=== PATIENT | male | born 1935 | race Asian ===

== ENCOUNTER 2017-06-11 11:09 | Emergency (ER) | payer OTHER ==
--- NOTE | 2017-06-11 13:03 | EDPHY ---
H & P Stated Complaint: BP up, positional vertigo since mar[place] when lying in bed - Personal History Current Tetanus Diphtheria and Acellular Pertussis (TDAP): Yes - Medical/Surgical History Hx Cardiac Disease: Yes Other PMH: CABG in 1992. HTN - Social History Smoking Status: Never smoked Constitutional: Initial Vital Signs Temperature (C) 36.5 C 06/11/17 11:10 Heart Rate 70 06/11/17 11:10 Respiratory Rate 18 06/11/17 11:10 Blood Pressure 176/83 H 06/11/17 11:10 O2 Sat (%) 97 06/11/17 11:10 O2 Delivery Mode Room Air Allergies/Adverse Reactions: No Known Allergies Allergy (Unverified 06/11/17 11:14) Home Medications: Medication Instructions Recorded Albuterol Sulfate [Proair Hfa] 8.5 gm IH 06/11/17 Amlodipine Besylate [Norvasc] 5 mg PO 06/11/17 Carvedilol [Coreg] 12.5 mg PO 06/11/17 Fluticasone/Salmeter 100/50Mcg 1 puffs IH BID 06/11/17 [Advair 100/50 (*)] Losartan Potassium [Cozaar 50 mg 50 mg PO 06/11/17 (*)] Nitroglycerin [Nitrostat 0.4 mg 0.4 mg SL 06/11/17 (*)] Rosuvastatin Calcium [Crestor 20mg 20 mg PO DAILY 06/11/17 (*)] Tiotropium Inhaler [Spiriva 1 inh IH 06/11/17 Inhaler] traZODone [traZODONE 50MG (*)] 50 mg PO 06/11/17 Medical Decision Making ED Course/Re-evaluation: 1258: Assessed patient in conjunction with REE Chapin. This is a 81 y/o male arriving with his family members complaining of intermittent dizziness and vertiginous symptoms for the last 4 days. 6 yrs ago workup for same was negative vertigo? intermittent since . no prior MRI. exacerbated by turning to the left, horizontal nystagmus. difficulty getting to standing and walking no nausea room does not seem to be spinning but he feels like he is spinning. no recent illness, trauma hypertension has lived in [place] 2015 Departure - Departure Referrals: Celena Best MD [Primary Care Provider] - As per Instructions
--- NOTE | 2017-06-11 13:07 | EDPHY ---
General - History Smoking Status: Never smoked Narrative: CHIEF COMPLAINT: Dizziness HISTORY OF PRESENT ILLNESS: Patient presents with spouse and physicians son at bedside. He complains of dizziness. This originally started night. It is described as a spinning sensation. Comes and goes. It did improve over night into Sunday morning. It worsened again Sunday evening. Seem to be worse when he laid in bed on his left side. It does also seem to be worse when he looks to his left when standing. He feels somewhat unsteady on his feet. No chest pain. No vomiting. He did have a mild generalized headache with this. He also have reportedly mild hypertension. Contacted his son Ana Laura. He suggested Mary Jane- [place] medication for possible sinus congestion. This did not help his symptoms. He initially tried to contact his primary care physician and an ENT physician but was unable to be seen. He presented to urgent care and they sent her to our facility for higher level of care. His spouse denies any facial droop or slurred speech. She denies any confusion or unilateral weakness. No previous stroke. Did have a previous similar incident approximately 6 years ago was constant. He was evaluated clinically by an ENT physician without imaging. No other associated complaints or modifying factors. REVIEW OF SYSTEMS: Ten systems reviewed and are negative unless otherwise noted in the HPI PCP: Dr. Celena Best SPECIALISTS: Dr. Hollis PAST MEDICAL HISTORY: Hypertension, dyslipidemia PAST SURGICAL HISTORY: No recent surgeries SOCIAL HISTORY: Nonsmoker. Resides in [place] for the past year FAMILY HISTORY: Noncontributory EXAMINATION General Appearance: Alert, no distress Head: normocephalic, atraumatic Eyes: Pupils equal and round, no conjunctival pallor or injection. Horizontal nystagmus. No vertical nystagmus. ENT, Mouth: Mucous membranes moist Neck: Normal inspection, supple, non-tender Respiratory: Lungs are clear to auscultation Cardiovascular: Regular rate and rhythm. No murmur. Symmetric radial pulses 2+ . Gastrointestinal: Abdomen is soft and nontender Back: non-tender, no bony abnormalities Neurological: GCS 15. Cranial nerves 2-12 grossly intact. A&O, nonfocal, strength is symmetric at 5/5 in the arms and legs. No pronator drift. Normal [id number]. Skin: Warm and dry, no rash Extremities: Nontender, no pedal edema Psychiatric: Mood and affect normal DIFFERENTIAL DIAGNOSES: Including but not limited to BPPV, vertebrobasilar syndrome, stroke, dehydration MDM: 1:10 p.m. Dizziness that seems to lateralize to the left consistent with BPPV. No evidence of stroke by examination or history. Patient was evaluated in conjunction with Dr. Espana. We agree that patient would benefit from an MRI of the brain to definitively rule out or and cerebellar abnormality. I have ordered meclizine p.o.. I have ordered laboratory studies an EKG. He is in no acute distress. 1:55 p.m. Laboratory studies unremarkable. MRI pending. 2:30 p.m. I went to re-evaluate the patient but he was just taking MRI. I have dated the spouse on the laboratory studies that are negative and the EKG that is normal. 3:20 p.m. MRI findings discussed between Dr. Espana and radiologist. No evidence of CVA. Etiology likely BPPV. Patient re-evaluated. He is feeling well. He sitting up on the bed with no nausea or vomiting. Meclizine helped a little bit he says. I gave him half dose level given the remainder of the dose. We discussed discharge home with follow-up with ENT and primary care physician. We discussed driving precautions. We discussed meclizine. We discussed ED precautions for worsening symptoms, chest pain, lightheadedness or syncope. All this information was relayed to his son with his permission. He will be discharged home stable condition. EKG interpretation: Dr. Espana SUPERVISION: Patient was evaluated and examined in conjunction with my secondary supervising physician as documented. We have both examined the patient. (Tony Chapin) Medical Decision Makin: Assessed patient in conjunction with REE Chapin. This is a 81 y/o male arriving with his family members complaining of intermittent dizziness and vertiginous symptoms for the last 4 days with associated elevated blood pressure. He was evaluated by ENT 6 years ago for similar symptoms and was treated for vertigo. He had no brain imaging at that time. His symptoms are exacerbated by movement, walking, and particularly turning to the left. He feels like he is spinning, but not the room. Symptoms are elicited by reading as well. He has some mild frontal headache and has tried treating symptoms with OTC decongestants without improvement. He was unable to get an appointment with either his PCP or ENT today and urgent care referred him to the ED. He was able to walk into the ED, but after moving him during exam he has difficulty transitioning to standing and feels too dizzy to walk. He is complaint with his hypertension medications. No associated nausea, vomiting, unilateral weakness or paresthesias. No recent illness or trauma. He has horizontal nystagmus particularly when turning to the left, but otherwise normal neuro exam. SHx: Patient has lived in [place] 2015. Son, Dr. Du from neurosurgery here, and at bedside. Plan for brain MRI to rule out central causes like cerebellar infarct, labs, and PO Meclizine. The 12 lead EKG was interpreted by myself. Sinus mechanism, no ischemic changes. See hard copy and/or "tracemaster" electronic copy for interpretation. (Milton Espana) - Diagnostics Imaging Results: Imaging Impressions Brain MRI 06/11/17 13:06 Impression: 1. Minimal cerebral atrophy. 2. No acute infarct, acute hemorrhage, hydrocephalus, mass effect, or herniation. 3. Multiple nonspecific hyperintense T2/FLAIR signal abnormalities in the white matter of bilateral cerebral hemispheres. Differential diagnosis includes moderate microvascular ischemic gliosis, versus less likely post-infectious/ post-inflammatory sequela. 4. 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 5. No brainstem or cerebellar infarcts. Findings and recommendations discussed with Emergency Department physician, Milton Espana MD at 1515 hour, 06/11/2017. Final report concurs with initial preliminary interpretation. Cosign: Dr. Eugenio Conti. - Objective Vital Signs: Initial Vital Signs Temperature (C) 97.7 F 06/11/17 11:10 Heart Rate 70 06/11/17 11:10 Respiratory Rate 18 06/11/17 11:10 Blood Pressure 176/83 H 06/11/17 11:10 O2 Sat (%) 97 06/11/17 11:10 O2 Delivery Mode Room Air Allergies/Adverse Reactions: No Known Allergies Allergy (Unverified 06/11/17 11:14) Home Medications: Medication Instructions Recorded Albuterol Sulfate [Proair Hfa] 8.5 gm IH 06/11/17 Amlodipine Besylate [Norvasc] 5 mg PO 06/11/17 Carvedilol [Coreg] 12.5 mg PO 06/11/17 Fluticasone/Salmeter 100/50Mcg 1 puffs IH BID 06/11/17 [Advair 100/50 (*)] Losartan Potassium [Cozaar 50 mg 50 mg PO 06/11/17 (*)] Meclizine HCl [Meclizine HCl 25 mg 25 mg PO BID #10 tab 06/11/17 (RX,OTC)] Nitroglycerin [Nitrostat 0.4 mg 0.4 mg SL 06/11/17 (*)] Rosuvastatin Calcium [Crestor 20mg 20 mg PO DAILY 06/11/17 (*)] Tiotropium Inhaler [Spiriva 1 inh IH 06/11/17 Inhaler] traZODone [traZODONE 50MG (*)] 50 mg PO 06/11/17 Laboratory Results: Laboratory Results 06/11/17 13:17 06/11/17 13:17 06/11/17 06/11/17 06/11/17 13:17 13:17 13:17 WBC 9.88 10^3/uL H 10^3/uL (3.80-9.50) RBC 6.27 10^6/uL 10^6/uL (4.40-6.38) Hgb 12.8 g/dL L g/dL (13.7-17.5) Hct 40.9 % % (40.0-51.0) MCV 65.2 fL L fL (81.5-99.8) MCH 20.4 pg L pg (27.9-34.1) MCHC 31.3 g/dL L g/dL (32.4-36.7) RDW 17.0 % H % (11.5-15.2) Plt Count 283 10^3/uL 10^3/uL (150-400) MPV 9.7 fL fL (8.7-11.7) Neut % (Auto) 63.2 % % (39.3-74.2) Lymph % (Auto) 23.3 % % (15.0-45.0) [place] % (Auto) 9.8 % % (4.5-13.0) Eos % (Auto) 1.7 % % (0.6-7.6) Baso % (Auto) 1.0 % % (0.3-1.7) Nucleat RBC Rel Count 0.2 % % (0.0-0.2) Absolute Neuts (auto) 6.24 10^3/uL 10^3/uL (1.70-6.50) Absolute Lymphs (auto) 2.30 10^3/uL 10^3/uL (1.00-3.00) Absolute Monos (auto) 0.97 10^3/uL H 10^3/uL (0.30-0.80) Absolute Eos (auto) 0.17 10^3/uL 10^3/uL (0.03-0.40) Absolute Basos (auto) 0.10 10^3/uL 10^3/uL (0.02-0.10) Absolute Nucleated RBC 0.02 10^3/uL H 10^3/uL (0-0.01) Immature Gran % 1.0 % % (0.0-1.1) Immature Gran # 0.10 10^3/uL 10^3/uL (0.00-0.10) Platelet Estimate ADEQUATE (ADEQ) Hypochromasia 3+ H Basophilic Stippling 1+ H Microcytic Cells 3+ H Tear Drop Cells 1+ H Elliptocytes 1+ H Smear Review By Pending PT 13.6 SEC SEC (12.0-15.0) INR 1.02 (0.83-1.16) APTT 33.3 SEC SEC (23.0-38.0) Sodium 135 mEq/L mEq/L (135-145) Potassium 4.4 mEq/L mEq/L (3.5-5.2) Chloride 100 mEq/L mEq/L (97-110) Carbon Dioxide 26 mEq/l mEq/l (22-31) Anion Gap 9 mEq/L mEq/L (8-16) BUN 16 mg/dL mg/dL (7-23) Creatinine 0.9 mg/dL mg/dL (0.7-1.3) Estimated GFR > 60 Glucose 124 mg/dL H mg/dL (70-100) Calcium 9.6 mg/dL mg/dL (8.5-10.4) NT-Pro-B Natriuret Pep 702 pg/mL H pg/mL (0-450) Lipase 107 IU/L IU/L (23-300) Medications Given: Discontinued Medications Meclizine HCl (Meclizine Hcl) 12.5 mg PO EDNOW ONE Stop: 06/11/17 13:09 Last Admin: 06/11/17 14:08 Dose: Not Given Meclizine HCl (Meclizine Hcl) 12.5 mg PO EDNOW ONE Stop: 06/11/17 14:08 Last Admin: 06/11/17 14:08 Dose: 12.5 mg Meclizine HCl (Meclizine Hcl) 12.5 mg PO EDNOW ONE Stop: 06/11/17 15:33 Last Admin: 06/11/17 15:40 Dose: 12.5 mg Departure - Departure Disposition: Home, Routine, Self-Care Clinical Impression: BPPV (benign paroxysmal positional vertigo) Qualifiers: Laterality: left Qualified Code(s): H81.12 - Benign paroxysmal vertigo, left ear Condition: Good Instructions: Vertigo (ED) Additional Instructions: 1. Meclizine 25 mg twice daily as needed 2. Continue previous medications 3. No driving until cleared by primary care physician or ENT physician 4. ED precautions for worsening symptoms, chest pain, loss of consciousness Referrals: Celena Best MD [Primary Care Provider] - As per Instructions Teresa Rios PA [Physician Racing Secretary And Handicapper] - As per Instructions Prescriptions: Meclizine HCl [Meclizine HCl 25 mg (RX,OTC)] 25 mg PO BID #10 tab
[2017-06-11] MEDS ORDERED: MECLIZINE HCL 12.5 MG TAB PO ONE (13:08)
--- NOTE | 2017-06-11 13:31 | CPEKG ---
Heart Rate: 73 RR Interval: 822 P-R Interval: 184 QRSD Interval: 142 QT Interval: 456 QTC Interval: 503 P [place]: 64 QRS Vale: -37 T Wave [place]: 49 EKG Severity - ABNORMAL ECG - EKG Impression: SINUS RHYTHM EKG Impression: PROBABLE LEFT ATRIAL ABNORMALITY EKG Impression: RBBB AND LAFB Electronically Signed By: Milton Espana 11-Jun-2017 19:44:02
[2017-06-11 13:33] LABS: PLATELET COUNT 283 10^3/uL (150-400)
[2017-06-11 13:42] LABS: INR 1.02 (0.83-1.16); PROTIME(PATIENT) 13.6 SEC (12.0-15.0)
[2017-06-11] MEDS ORDERED: MECLIZINE HCL 25 MG TAB ONE (14:01)
[2017-06-11] MEDS ORDERED: MECLIZINE HCL 25 MG TAB PO ONE ×2 (14:07→15:32)
[2017-06-11 16:00] VITALS: RESP 16
[2017-06-11 16:01] VITALS: BP 150/74; PULSE 69; TEMP 97.9; O2SAT 97
== END 2017-06-11 16:01 | disposition home or self-care (01) ==
DX: H81.12 Benign paroxysmal vertigo, left ear (principal); I10 Essential (primary) hypertension

== ENCOUNTER 2017-06-30 13:42 | Observation (INO) | payer OTHER ==
--- NOTE | 2017-06-30 13:55 | CPEKG ---
Heart Rate: 63 RR Interval: 952 P-R Interval: 180 QRSD Interval: 156 QT Interval: 484 QTC Interval: 496 P [place]: 70 QRS [place]: -23 T Wave [place]: 49 EKG Severity - ABNORMAL ECG - EKG Impression: SINUS RHYTHM EKG Impression: RBBB AND LAFB Electronically Signed By: Naheed Reyna 30-Jun-2017 21:24:16
--- NOTE | 2017-06-30 13:57 | EDPHY ---
H & P Time Seen by Provider: 06/30/17 13:52 HPI/ROS: CHIEF COMPLAINT: Syncope HISTORY OF PRESENT ILLNESS: The patient is a 81 y/o male with a history of hypertension and a CABG (1992) arriving via EMS after experiencing multiple syncopal episodes today. Last Sunday, 2 weeks ago, he felt dizzy and presented to the ED. He had normal labs and MRI and was referred to outpatient PT with ENT. His dizziness was improving , but he started modifying his cardiac medicines. 2 days ago he doubled his dose of a hypertension medication which cause his blood pressure to drop too much. Today he took this medications as prescribed. While sitting at lunch, he began to feel dizzy, lightheaded, and had a mild right arm twitch, which he was unaware of, so he requested to lie down. He then became unresponsive, but his eyes were still open; this lasted around 2-3 minutes. Following the syncope he was A&O x 3 per his son. He then moved to a chair in the living room where he had another syncopal episode of 1 minute. His family called 911 following the second syncopal episode. No cough, recent cold, fever, chest pain, abdominal pain, urinary complaints, extremity pain, headache. Followed by Dr. Hollis, open winder. Halter monitor worn last year was unremarkable. REVIEW OF SYSTEMS: Aside from elements discussed in the HPI, a comprehensive 10-point review of systems was reviewed and is negative. Past Medical/Surgical History: CABG (1992), hypertension Social History: Family at bedside including his son (Pepe Ana Laura, neurosurgeon), lives in [place] , retired Smoking Status: Never smoked Physical Exam: General Appearance: Alert, pleasant Eyes: Pupils equal and round, no conjunctival pallor or injection ENT, Mouth: Mucous membranes moist Neck: Normal inspection Respiratory: Lungs are clear to auscultation Cardiovascular: Regular rate and rhythm Gastrointestinal: Abdomen is soft and non-tender Neurological: Alert, oriented x3, cranial nerves II through XII intact, motor 5/ 5, sensory intact to light touch, normal gait Skin: Warm and dry, no rash Extremities: Nontender, no pedal edema Psychiatric: Mood and affect normal Constitutional: Initial Vital Signs Temperature (C) 36.9 C 06/30/17 13:45 Heart Rate 62 06/30/17 13:45 Respiratory Rate 20 06/30/17 13:45 Blood Pressure 97/58 L 06/30/17 13:45 O2 Sat (%) 96 06/30/17 13:45 O2 Delivery Mode Room Air Allergies/Adverse Reactions: No Known Allergies Allergy (Verified 06/30/17 13:54) Home Medications: Medication Instructions Recorded Carvedilol [Coreg] 12.5 mg PO BID 06/11/17 Nitroglycerin [Nitrostat 0.4 mg 0.4 mg SL PRN PRN 06/11/17 (*)] Rosuvastatin Calcium [Crestor 20mg 20 mg PO HS 06/11/17 (*)] traZODone [traZODONE 50MG (*)] 25 - 50 mg PO DAILY PRN 06/11/17 Acetaminophen [Tylenol 325mg (*)] 325 - 650 mg PO Q6 PRN 06/30/17 Albuterol Sulfate [Ventolin Hfa] 2 puffs IH Q4-6PRN PRN 06/30/17 Ascorbic Acid [Vitamin C 500 mg 500 mg PO BID 06/30/17 (*)] Aspirin [Aspirin 81mg (*)] 162 mg PO DAILY 06/30/17 Atovaquone/Proguanil HCl [Malarone 1 tab PO DAILY 06/30/17 250/100 mg Tab (*)] C/E/Zn/Cu/OM3/DHA/EPA/LUT/ZEAX 1 each PO DAILY 06/30/17 [Preservision Areds 2 Softgel] Fluticasone/Salmeter 250/50Mcg 1 puffs IH BID 06/30/17 [Advair 250/50 (*)] Herbals/Supplements -Info Only 1 ea PO DAILY 06/30/17 Levothyroxine [Synthroid 88 mcg 88 mcg PO DAILY06 06/30/17 (*)] Loratadine [Claritin 10 mg] 10 mg PO DAILY 06/30/17 Montelukast Sodium [Singulair 10 10 mg PO DAILY@1800 06/30/17 mg (*)] Multivitamins [Multivitamin (*)] 1 each PO DAILY 06/30/17 [place]-3 Fatty Acids [Fish Oil 1000 1,000 mg PO DAILY 06/30/17 mg (*)] Omeprazole [Prilosec 20 mg] 20 mg PO DAILY 02/10/18 Propylene Glycol [Systane Balance] 1 - 2 drops OP DAILY PRN 06/30/17 Losartan Potassium [Cozaar 50 mg 50 mg PO DAILY #30 tab 07/01/17 (*)] Medical Decision Making - Diagnostics EKG Interpretation: EKG interpreted by me reveals normal sinus rhythm with a rate of 63, normal axis , normal intervals, ST and T segments normal, RBBB and LAFB. Interpretation: abnormal EKG Imaging: I viewed and interpreted images myself ED Course/Re-evaluation: The patient is a 81 y/o male with a history of hypertension and a CABG (1992) arriving via EMS after multiple syncopal episodes today. His physical exam is normal. Due to prior syncopal and dizziness episodes, he will need to be admitted for observation. Patient and his family are comfortable with this plan. EKG and labs ordered. 500mL IV NS administered. 1348: EKG preformed and interpreted by myself 1407: Consulted with Dr. Jacome, open winder, regarding this patient. He agrees to consult on this patient during his admission. 1408: Consulted with hospitalist service, Dr. Yung agrees to admit this patient to the PCU. - Data Points Laboratory Results: Laboratory Results 06/30/17 13:50 06/30/17 13:50 Medications Given: Discontinued Medications Amlodipine Besylate (Norvasc) 5 mg PO DAILY [facility] Stop: 12/28/17 08:59 Last Admin: 07/01/17 09:46 Dose: Not Given Ascorbic Acid (Vitamin C) 500 mg PO BID DELFIN Stop: 12/27/17 20:59 Last Admin: 07/01/17 09:36 Dose: 500 mg Aspirin (Aspirin) 162 mg PO DAILY DELFIN Stop: 12/28/17 08:59 Last Admin: 07/01/17 09:36 Dose: 162 mg Atovaquone/Proguanil (Malarone 250-100 Mg Tablet) 1 each PO DAILY [facility] PRN Reason: Protocol Stop: 07/31/17 08:59 Last Admin: 07/01/17 11:02 Dose: Not Given Carvedilol (Coreg) 12.5 mg PO BID DELFIN Stop: 12/27/17 20:59 Last Admin: 07/01/17 09:37 Dose: 12.5 mg Cetirizine HCl (Zyrtec) 10 mg PO DAILY DELFIN Stop: 12/28/17 08:59 Last Admin: 07/01/17 09:37 Dose: 10 mg Enoxaparin Sodium (Lovenox) 40 mg SC DAILY DELFIN Stop: 12/28/17 08:59 Last Admin: 07/01/17 09:44 Dose: Not Given Sodium Chloride (Ns) 500 mls @ 1,000 mls/hr IV EDNOW ONE PRN Reason: Protocol Stop: 06/30/17 14:35 Last Admin: 06/30/17 14:34 Dose: 500 mls Levothyroxine Sodium (Synthroid) 88 mcg PO DAILY06 DELFIN Stop: 12/28/17 05:59 Last Admin: 07/01/17 06:04 Dose: 88 mcg Montelukast Sodium (Singulair) 10 mg PO DAILY@1800 DELFIN Stop: 12/27/17 17:59 Last Admin: 06/30/17 20:15 Dose: 10 mg Multivitamins (Tab-A-Segundo) 1 each PO DAILY DELFIN Stop: 12/28/17 08:59 Last Admin: 07/01/17 09:37 Dose: 1 each Multivitamins/Minerals (Preservision Areds2 Formula) 1 each PO DAILY DELFIN Stop: 12/28/17 08:59 Last Admin: 07/01/17 09:37 Dose: 1 each Lzwje-0-Ycra Ethyl Esters (Fish Oil) 1,000 mg PO DAILY DELFIN Stop: 12/28/17 08:59 Last Admin: 07/01/17 09:37 Dose: 1,000 mg Pantoprazole Sodium (Protonix) 40 mg PO DAILY DELFIN Stop: 12/28/17 08:59 Last Admin: 07/01/17 09:36 Dose: 40 mg Rosuvastatin Calcium (Crestor) 20 mg PO HS DELFIN Stop: 12/27/17 20:59 Last Admin: 06/30/17 20:15 Dose: 20 mg Fluticasone/Salmeterol (Advair) 1 puffs IH BID EDLFIN Stop: 12/27/17 20:59 Last Admin: 07/01/17 08:53 Dose: 1 puffs Senna/Docusate Sodium (Senokot-S) 1 - 2 tab PO BID DELFIN PRN Reason: Protocol Stop: 12/27/17 20:59 Last Admin: 07/01/17 09:38 Dose: 1 tab Trazodone HCl (Trazodone) 25 - 50 mg PO DAILY PRN PRN Reason: Anxiety Stop: 12/27/17 15:32 Last Admin: 06/30/17 20:26 Dose: 50 mg Departure - Departure Disposition: [facility] Inpatient Acute Clinical Impression: PVC (premature ventricular contraction) Syncope Qualifiers: Syncope type: unspecified Qualified Code(s): R55 - Syncope and collapse Condition: Fair Report Scribed for: Naheed Reyna Report Scribed by: Divina Pinon Date of Report: 06/30/17 Time of Report: 13:57 Physician Review and Approval Statement: 06/30/17 13:57 Portions of this note were transcribed by a director medical affairs. I personally performed a history, physical exam, medical decision making, and confirmed accuracy of information the transcribed note.
[2017-06-30 14:04] LABS: PLATELET COUNT 252 10^3/uL (150-400)
[2017-06-30] MEDS ORDERED: NS 500 ML IV ONE (14:06)
[2017-06-30] MEDS ORDERED: ACETAMINOPHEN 325 MG TAB PO PRN (14:12)
[2017-06-30] MEDS ORDERED: ONDANSETRON DISINTEGRATING 4 MG TAB PO PRN (14:12)
[2017-06-30] MEDS ORDERED: ONDANSETRON 4 MG/2 ML VIAL IVP PRN (14:12)
[2017-06-30] MEDS ORDERED: METOCLOPRAMIDE 5 MG TAB PO PRN (15:10)
[2017-06-30] MEDS ORDERED: BISACODYL 10 MG SUPP PR PRN (15:10)
[2017-06-30] MEDS ORDERED: MAGNESIUM HYDROXIDE 30 ML UDCUP PO PRN (15:10)
[2017-06-30] MEDS ORDERED: LACTULOSE 20 GM/30 ML UDCUP PO PRN (15:10)
[2017-06-30] MEDS ORDERED: POLYETHYLENE GLYCOL 3350 17 GM PKT PO PRN (15:10)
[2017-06-30] MEDS ORDERED: SIMETHICONE 80 MG TAB CHEW PO PRN (15:10)
[2017-06-30] MEDS ORDERED: NS 1,000 ML IV SCH (15:15)
--- NOTE | 2017-06-30 15:17 | PDGENHP ---
History and Physical - Chief Complaint Acute syncope - History of Present Illness Primary care provider: Dr. Celena Best Primary extruding machine operator: Dr. Trevon Hollis Primary ENT: Teresa vallecillo HPI: 81-year-old male presenting with acute syncope characterized as unresponsiveness, with onset of symptoms on the day of presentation after eating lunch, associated with lightheadedness while seated, twitching in the right upper extremity, duration approximately 2-3 minutes, and recurrence 3 times thereafter. Event was witnessed by the patient's son and , and the patient began feeling unwell with some lightheadedness immediately prior to his unresponsiveness. The patient's son responded to his side, kept him from falling, and supported his upper airway. The patient was reportedly unable to verbalize or respond approximately 2-3 minutes, and then he began verbally responding spontaneously without any intervention. He did not have any bowel or bladder incontinence. He did not experience any preceding chest pain palpitations shortness of breath nausea vomiting or diarrhea. He had been experiencing a sensation of abdominal bloating after eating his lunch, and this persisted beyond the episode outlined above. After the 1st episode, the patient subsequently was normal for a couple minutes, and then experienced recurrence. During the 2nd recurrence, EMS was called. When EMS arrived, his systolic blood pressure was reportedly in the 60s. During transport with EMS, he experienced 2 subsequent episodes, both of which resolved without further intervention. The patient reportedly received 250 cc of IV normal saline, and his systolic blood pressure increased into the low 100. Upon arrival to the the emergency department, his systolic blood pressures ranged from 130-150, and he has continued to receive IV fluid. The patient does not recall the events above clearly, but he reports that his only lingering symptom is some abdominal bloating. Prior to his onset of symptoms, the patient had otherwise been feeling well, with the exception being that he felt particularly cold on the morning of presentation, and put on an extra shirt. He was eating and drinking normally on the morning of presentation, and was taking his home medications as prescribed. Approximately 4 days prior, the patient had reduced is dosage of carvedilol in half, at the direction of his primary care office, after the patient had recently been up titrated but then experienced subsequent low blood pressures, in the low 100s. The patient had also recently been adjusted from losartan to losartan hydrochlorothiazide, and he did have outpatient labs following med adjustment. In addition, the patient had also recently been receiving Balaji maneuvers for what has been believed to be benign positional paroxysmal vertigo. History Information - Allergies/Home Medication List Allergies/Adverse Reactions: No Known Allergies Allergy (Verified 06/30/17 13:54) Home Medications: Albuterol Sulfate [Proair Hfa] 8.5 gm IH 06/11/17 [Last Taken Unknown] Amlodipine Besylate [Norvasc] 5 mg PO 06/11/17 [Last Taken Unknown] Carvedilol [Coreg] 12.5 mg PO 06/11/17 [Last Taken Unknown] Fluticasone/Salmeter 100/50Mcg [Advair 100/50 (*)] 1 puffs IH BID 06/11/17 [ Last Taken Unknown] Losartan Potassium [Cozaar 50 mg (*)] 50 mg PO 06/11/17 [Last Taken Unknown] Nitroglycerin [Nitrostat 0.4 mg (*)] 0.4 mg SL 06/11/17 [Last Taken Unknown] Rosuvastatin Calcium [Crestor 20mg (*)] 20 mg PO DAILY 06/11/17 [Last Taken Unknown] Tiotropium Inhaler [Spiriva Inhaler] 1 inh IH 06/11/17 [Last Taken Unknown] traZODone [traZODONE 50MG (*)] 50 mg PO 06/11/17 [Last Taken Unknown] I have personally reviewed and updated: family history, medical history, social history, surgical history - Past Medical History coronary artery disease (Status post CABG in 1991), hypertension, hyperlipidemia Additional medical history: Carotid stenosis status post CEA in 2012. Benign positional paroxysmal vertigo receiving Balaji maneuvers - Surgical History Additional surgical history: CABG. Right CEA. Hernia repair. Cataract surgery. Tonsillectomy - Family History Additional family history: No venous thromboembolism, no recent sick family contacts, no sudden cardiac - Social History Smoking Status: Never smoked Alcohol Use: Occasionally Drug Use: None Additional social history: Independent ADLs, lives with in [place], has moved to [place] 1.5 years ago Review of Systems Review of Systems: ROS: 10pt was reviewed & negative except for what was stated in HPI & below Constitutional: Reports: other (Feeling cold) Gastrointestinal: Reports: other (Feeling bloated) Neurological: Reports: other (Lightheadedness, unresponsiveness, right upper extremity tremulousness) Physical Exam Physical Exam: Temp Pulse Resp BP Pulse Ox 36.9 C 71 20 150/73 H 97 06/30/17 13:45 06/30/17 14:34 06/30/17 14:34 06/30/17 14:34 06/30/17 14:34 Constitutional: no apparent distress, appears nourished, not in pain Eyes: PERRL, anicteric sclera, EOMI Ears, Nose, Mouth, Throat: moist mucous membranes, hearing normal, ears appear normal, no oral mucosal ulcers Cardiovascular: No systolic murmur (Very distant heart sounds), No irregularly irregular (Occasional ectopic beat), No carotid bruit, No edema Respiratory: no respiratory distress, no rales or rhonchi, clear to auscultation Gastrointestinal: normoactive bowel sounds, soft, non-tender abdomen, no palpable masses, distension (Moderate), No guarding Skin: No abrasion, No rash Neurologic: AAOx3, sensation intact bilaterally, CN II-XII Intact, No weakness ( Motor 5/5 bilateral upper and lower extremities), No facial droop Psychiatric: interacting appropriately, not anxious, not encephalopathic, thought process linear Lab Data & Imaging Review 06/30/17 13:50 06/30/17 13:50 WBC 14.79 10^3/uL (3.80-9.50) H 06/30/17 13:50 RBC 5.49 10^6/uL (4.40-6.38) 06/30/17 13:50 Hgb 11.6 g/dL (13.7-17.5) L 06/30/17 13:50 Hct 35.1 % (40.0-51.0) L 06/30/17 13:50 MCV 63.9 fL (81.5-99.8) L 06/30/17 13:50 MCH 21.1 pg (27.9-34.1) L 06/30/17 13:50 MCHC 33.0 g/dL (32.4-36.7) 06/30/17 13:50 RDW 15.2 % (11.5-15.2) 06/30/17 13:50 Plt Count 252 10^3/uL (150-400) 06/30/17 13:50 MPV 10.1 fL (8.7-11.7) 06/30/17 13:50 Neut % (Auto) Not Reported 06/30/17 13:50 Lymph % (Auto) Not Reported 06/30/17 13:50 [place] % (Auto) Not Reported 06/30/17 13:50 Eos % (Auto) Not Reported 06/30/17 13:50 Baso % (Auto) Not Reported 06/30/17 13:50 Nucleat RBC Rel Count 0.5 % (0.0-0.2) H 06/30/17 13:50 Absolute Neuts (auto) Not Reported 06/30/17 13:50 Absolute Lymphs (auto) Not Reported 06/30/17 13:50 Absolute Monos (auto) Not Reported 06/30/17 13:50 Absolute Eos (auto) Not Reported 06/30/17 13:50 Absolute Basos (auto) Not Reported 06/30/17 13:50 Absolute Nucleated RBC 0.08 10^3/uL (0-0.01) H 06/30/17 13:50 Immature Gran % Not Reported 06/30/17 13:50 Immature Gran # Not Reported 06/30/17 13:50 D-Dimer 0.39 ug/mLFEU (0.00-0.50) 06/30/17 14:00 Sodium 128 mEq/L (135-145) L 06/30/17 13:50 Potassium 4.0 mEq/L (3.5-5.2) 06/30/17 13:50 Chloride 96 mEq/L (97-110) L 06/30/17 13:50 Carbon Dioxide 22 mEq/l (22-31) 06/30/17 13:50 Anion Gap 10 mEq/L (8-16) 06/30/17 13:50 BUN 25 mg/dL (7-23) H 06/30/17 13:50 Creatinine 1.1 mg/dL (0.7-1.3) 06/30/17 13:50 Estimated GFR > 60 06/30/17 13:50 Glucose 101 mg/dL (70-100) H 06/30/17 13:50 Calcium 8.1 mg/dL (8.5-10.4) L 06/30/17 13:50 Troponin I < 0.012 ng/mL (0.000-0.034) 06/30/17 13:50 TSH 2.290 uIU/mL (0.465-4.680) 06/30/17 14:00 Visualized and Interpreted EKG results: Yes EKG Interpretation: Positive for: other (Normal sinus rhythm, right bundle branch block, left anterior fascicular block, similar to EKG from 06/11/2017) Assessment & Plan Assessment: 81-year-old male presenting with acute syncope in the setting of hypotension, acute hyponatremia, acute leukocytosis Plan: 1. Syncope. Acute, new problem this provider, further workup indicated. Unclear etiology although this is most likely secondary to hypotension of unclear origin, possibly vasovagal in the setting of bloating postprandially verses overt hypovolemia in the setting of recent addition of diuretic to his blood pressure regimen -check orthostatics signs now, repeat in a.m. -given that it is unclear whether the patient has had a previous echocardiogram and he does have reduced heart sounds on physical exam, prudent to get repeat echocardiogram at this time -given the possibility of otherwise systemic illness causing this issue with leukocytosis, get respiratory viral panel -last 48hr monitor in 2017, PVCs on tele, monitor on telemetry, will consider implant linq recorder given the patient's upcoming travels to [facility] 2. Hyponatremia. Acute, secondary to renal hypoperfusion in the setting of hypotension, unclear whether the patient has overt hypovolemia in the setting of recent diuretic addition to his antihypertensive regimen -place on normal saline at 100 cc/hour, repeating labs at 8:00 p.m. and in a.m. -hold losartan and hydrochlorothiazide 3. Leukocytosis. Unclear whether this is secondary to hypotensive episode verses underlying viral infection, checking respiratory viral panel at this time , repeat WBC in a.m. 4. Possible benign positional paroxysmal vertigo. Patient records from 2015, ED report by Dr. 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 Coronary artery disease. Chronic, continue home aspirin, beta-bakari Diet. Regular, NPO in a.m. in case procedures indicated Prophylaxis. High risk patient, Lovenox 40 Code. Full, son is POTejinder Disposition. Anticipated discharge 07/01, pending further workup as outlined above. If patient requires greater than 48 hr inpatient hospitalization for reasonable medical necessity, his status will be upgraded to inpatient tomorrow. I have discussed the issues outlined above with Dr. Josh Jacome, we both agree the patient warrants further evaluation on the PCU, and Dr. Trevon Hollis will consult on the patient tomorrow a.m..
[2017-06-30] MEDS ORDERED: traZODone 50 MG TAB PO PRN (15:33)
[2017-06-30] MEDS ORDERED: PROPYLENE GLYCOL OP PRN (15:33)
[2017-06-30] MEDS ORDERED: ALBUTEROL INH PREPACK MDI TAKEHOME PRN (15:33)
[2017-06-30] MEDS ORDERED: ALBUTEROL 60 PUFFS/8 GM MDI IH PRN (15:50)
[2017-06-30] MEDS ORDERED: MONTELUKAST SODIUM 10 MG TAB PO SCH (18:00)
[2017-06-30] MEDS: SENNOSIDES/DOCUSATE SODIUM TAB PO SCH (20:15)
[2017-06-30] MEDS: ASCORBIC ACID 500 MG TAB PO SCH (20:15)
[2017-06-30] MEDS: CARVEDILOL 25 MG TAB PO SCH (20:15)
[2017-06-30] MEDS: FLUTICASONE/SALMETER 250/50MCG DISKUS IH SCH (20:19)
[2017-06-30] MEDS ORDERED: FLUTICASONE/SALMETER 250/50MCG DISKUS IH SCH (21:00)
[2017-06-30] MEDS ORDERED: NON-FORMULARY NEW DRUG (Carvedilol [Coreg] 12.5 MG) PO SCH (21:00)
[2017-06-30] MEDS ORDERED: ROSUVASTATIN CALCIUM 20 MG TAB PO SCH (21:00)
[2017-07-01 04:40] LABS: PLATELET COUNT 190 10^3/uL (150-400)
[2017-07-01] MEDS ORDERED: LEVOTHYROXINE 88 MCG TAB PO SCH (06:00)
--- NOTE | 2017-07-01 08:52 | SOAPPROG ---
SOAP Progress Note Assessment/Plan: Assessment: Syncope: Based on the history obtained the most likely etiology is hemodynamically mediated syncope. I think arrhythmia is less likely given the fact that EMS arrived on the scene and obtained a blood pressure that they did. Additionally, he has been monitored several times in the past with no complex arrhythmias identified. The hypotension may be vasovagally mediated and is certainly contributed to by his multiple antihypertensive medications. Furthermore, he appeared to be slightly dehydrated on arrival based on review of his lab data. There is no indication of an acute coronary syndrome at think underlying ischemia is not likely to be contributing. He appears to have done well since he has been hospitalized. Blood pressures have stabilized. He states he feels back to normal. Plan: 1. Presently, I think that he can be discharged from the hospital. 2. For the time being the hydrochlorothiazide portion of his losartan/HCTZ can be held and he can continue on the lower dose (12.5 mg twice daily) of his Coreg. 3. As an outpatient I will expedite an echocardiogram and a 1 week [employer] monitor. 4. I will have him follow up with me in the office next week. 5. Apparently, he and his have plans to travel to [facility]. At the present time, I think that we should complete his workup prior to any extensive travel. 07/01/17 08:57 Subjective: He is well known to me from my outpatient clinic. His cardiovascular history is significant for known CAD with previous 4 vessel bypass surgery in 1993 and subsequent PCI in 2003, peripheral vascular disease characterized by previous carotid endarterectomy, hypertension and hyperlipidemia. At baseline, he has an abnormal ECG with a right bundle branch block/left anterior fascicular block. Previous Holter monitoring has not indicated any significant Mathew arrhythmias. He does have occasional PVCs. Here recently, we have been dealing with poor blood pressure control. Several weeks ago his Coreg was up titrated to 25 mg twice daily. Apparently, this resulted in low blood pressure readings in the low 100s and as a result he cut his Coreg back to 12-,1/2 mg daily. He is admitted with syncope. He woke yesterday feeling "chilled." As a result he put on several layers of additional clothing. Otherwise, he was not feeling ill. He was having lunch with his and his son yesterday. Apparently, this was an uneventful lunch. Immediately afterwards he felt a little bit warm and flushed. He asked for a glass of water. Apparently he subsequently lost consciousness while sitting in an upright position. He slumped over. His son, who is a neurosurgeon at this institution, assisted in keeping his airway open. It was noted that he was in and out of consciousness for about 2-3 minutes. He had a slight convulsive activity with his right extremity. He had no generalized seizures. There was no loss of bowel or bladder control. During periods of time where he was alert he was oriented. He was not diaphoretic and was not complaining of chest discomfort. EMS was activated. Apparently, when they arrived his blood pressure was noted to be in the 60s. An IV was placed and he was transported to [facility]. On arrival here his blood pressure was in the 90s and he was in sinus rhythm. He has not had any further events like this since he has arrived. His Cozaar/hydrochlorothiazide has been held. He has not been sick in any other way that he knows of. Specifically he denies diarrhea, nausea and vomiting. He has not experienced any chest discomfort or breathlessness. He has not had any palpitations. He does occasionally get lightheaded if he stands up quickly however has not had any other episodes of syncope. Previous cardiovascular testing includes: He had a Holter monitor in September of 2016. That demonstrated normal sinus rhythm with no pauses. There were frequent PVCs with no complex ventricular arrhythmias. Carotid ultrasound February 2016 demonstrated carotid plaque with no acute destructive internal carotid lesions. Holter monitor from January 2016 demonstrated sinus rhythm with PVCs and couplets. Echocardiogram from March 2015 demonstrated a normal ejection fraction with hypokinesis of the inferior wall. He had moderate aortic regurgitation with moderate left atrial enlargement. Myocardial Perfusion Imaging from June 2014 demonstrated evidence of a previous inferior infarct. Objective: Vital Signs Temp Pulse Resp BP Pulse Ox 36.8 C 84 16 120/49 L 93 07/01/17 07:22 07/01/17 07:22 07/01/17 07:22 07/01/17 07:22 07/01/17 07:22 Microbiology 06/30/17 14:16 Respiratory Panel (PCR) - Final Nasal, Sinus - Swab No Organism Detected Laboratory Results 07/01/17 04:04 07/01/17 04:04 06/30/17 07/01/17 07/02/17 05:59 05:59 05:59 Intake Total 1050 Output Total 2450 Balance -1400 Physical Exam - Physical Exam General Appearance: WD/WN, no apparent distress Neck: non-tender, full range of motion Respiratory: lungs clear, normal breath sounds, No respiratory distress, No accessory muscle use, No decreased breath sounds Cardiac/Chest: normal peripheral pulses, regular rate, rhythm, systolic murmur ( 1/6 systolic ejection murmur left sternal border), No edema, No gallop, No JVD Peripheral Pulses: 2+: carotid (R), carotid (L) Abdomen: non-tender, soft Male Genitalia: deferred Rectal: deferred ICD10 Worksheet Patient Problems: Problems Problem Status Onset Syncope Acute PVC (premature ventricular contraction) Acute
[2017-07-01] MEDS: FLUTICASONE/SALMETER 250/50MCG DISKUS IH SCH (08:53)
[2017-07-01] MEDS ORDERED: Herbals/Supplements -Info Only PO SCH (09:00)
[2017-07-01] MEDS ORDERED: MALARONE 250/100 MG TAB PO SCH (09:00)
[2017-07-01] MEDS ORDERED: OMEGA-3 FATTY ACIDS 1,000 MG CAP PO SCH (09:00)
[2017-07-01] MEDS ORDERED: NON-FORMULARY NEW DRUG (Omeprazole [Prilosec 20 Mg] 20 MG) PO SCH (09:00)
[2017-07-01] MEDS ORDERED: amLODIPine BESYLATE 5 MG TAB PO SCH (09:00)
[2017-07-01] MEDS ORDERED: PRESERVISION AREDS2 FORMULA EYE VIT 1 EACH PO SCH (09:00)
[2017-07-01] MEDS ORDERED: CETIRIZINE 10 MG TAB PO SCH (09:00)
[2017-07-01] MEDS ORDERED: ASPIRIN 81 MG CHEWABLE TAB PO SCH (09:00)
[2017-07-01] MEDS ORDERED: NON-FORMULARY NEW DRUG (Loratadine [Claritin 10 Mg] 10 MG) PO SCH (09:00)
[2017-07-01] MEDS ORDERED: ENOXAPARIN 40 MG/0.4 ML SYR SC SCH (09:00)
[2017-07-01] MEDS ORDERED: PANTOPRAZOLE SODIUM 40 MG TAB PO SCH (09:00)
[2017-07-01] MEDS ORDERED: MULTIVITAMINS 1 EACH TAB PO SCH (09:00)
[2017-07-01] MEDS: ASCORBIC ACID 500 MG TAB PO SCH (09:36)
[2017-07-01] MEDS: CARVEDILOL 25 MG TAB PO SCH (09:37)
[2017-07-01] MEDS: SENNOSIDES/DOCUSATE SODIUM TAB PO SCH (09:38)
--- NOTE | 2017-07-01 12:33 | PDDCSUM ---
Discharge Summary Discharge Summary: Mr. Du was admitted after a syncopal episode which appears due to hypotension/hemodynamics. He was given IVF and BP meds were decreased. BP overnight was stable. He was seen this morning by Dr. Jose Hollis who has cleared him for d/c. BP is stable in the 120's. He did received coreg but not other BP meds. Going forward, Dr. Hollis recommends, continuing Losartan 50 and coreg 12.5 mg bid. Stop HCTZ. He is also on Amlodipine and will stop until he is seen by Dr. Hollis on Sunday. DDX: #Syncope #Hyponatremia, improving, likely due to hypotension/hypoperfusion/hypovolemia. Would check on f/u. Hold HCTZ. Losartan to restart tomorrow #Leukocytosis, no active infection #CAD Exam: VSS NAD AAOX3 RRR CTA B S/NT/ND NO LE EDEMA MEDS: SEE MED REC. SEE ABOVE F/U: per above total time spent on d/c is 35 mins
[2017-07-01 13:23] VITALS: BP 113/49; PULSE 75; RESP 12; TEMP 97.6; O2SAT 95
[2017-07-04] MEDS ORDERED: MALARONE 250/100 MG TAB PO SCH (09:00)
== END 2017-07-01 13:30 | disposition home or self-care (01) ==
LOC: EDUNIT# → F2W 15:12
PROVIDERS: ADMIT Internal Medicine; ATTEND Internal Medicine
DX: R55 Syncope and collapse (principal); E87.1 Hypo-osmolality and hyponatremia; D72.829 Elevated white blood cell count, unspecified; I25.10 Atherosclerotic heart disease of native coronary artery without angina pectoris; E86.9 Volume depletion, unspecified; Z98.890 Other specified postprocedural states
CPT/HCPCS: 71046; 93005; 93880; 97161; 97165; G0378; G8978; G8979; G8980; G8987; G8988; G8989; J1650

== ENCOUNTER → 2017-08-28 | Outpatient (CLI) | payer OTHER | LOC: BHFA 08:30 | PROVIDERS: ATTEND Internal Medicine Cardiovascular Disease | DX: R55 Syncope and collapse (principal) | CPT/HCPCS: 78452; 93017; A9500; J2785 ==

== ENCOUNTER 2017-10-22 05:42 | Day surgery (SDC) | payer OTHER ==
[2017-10-22] MEDS ORDERED: ceFAZolin 2 GM/DEXTROSE 100 ML IV ONE (06:00)
[2017-10-22] MEDS ORDERED: GABAPENTIN 300 MG CAP PO ONE (06:03)
[2017-10-22] MEDS ORDERED: ACETAMINOPHEN 500 MG TAB PO ONE (06:03)
[2017-10-22] MEDS ORDERED: LR 1,000 ML IV ONE (06:04)
[2017-10-22] MEDS ORDERED: LIDOCAINE 1% 2 ML INJ ID PRN (06:04)
[2017-10-22] MEDS ORDERED: DEPO METHYLPREDNISOLONE 40 MG/ML SDV ONE (06:37)
[2017-10-22] MEDS ORDERED: CHLORHEXIDINE GLUC HIBICLENS 118 ML BTL TP ONE (06:37)
[2017-10-22] MEDS ORDERED: BUPIVACAINE 0.25% 30 ML SDV ONE (06:37)
[2017-10-22] MEDS ORDERED: EPINEPHrine 1 MG/ML INJ ONE (06:37)
[2017-10-22] MEDS ORDERED: THROMBIN (BOVINE) 5,000 UNIT VIAL TP ONE (06:37)
[2017-10-22] MEDS ORDERED: BACITRACIN 50,000 UNITS/10 ML SYR IRR ONE (06:38)
--- NOTE | 2017-10-22 06:53 | PDHPUP ---
History & Physical Update H&P update statement: This history and physical update is based on an assessment of the patient which was completed after admission or registration (within 24 hours), but prior to the surgery/procedure. H&P update: H&P reviewed & patient examined, no change in patient's condition since H&P completed
--- NOTE | 2017-10-22 07:16 | PDANEPAE ---
ANE Past Medical History - Cardiovascular History Hx Hypertension: Yes Hx Arrhythmias: Yes Hx Chest Pain: No Hx Coronary Artery / Peripheral Vascular Disease: Yes Hx CHF / Valvular Disease: No Hx Palpitations: No Cardiovascular History Comment: POST ANGIOGRAM 1994 HEART STOPPED. HX PVC'S - Pulmonary History Hx COPD: No Hx Asthma/Reactive Airway Disease: Yes Hx Recent Upper Respiratory Infection: No Hx Oxygen in Use at Home: No Hx Sleep Apnea: No Sleep Apnea Screening Result - Last Documented: Positive Pulmonary History Comment: SOB SINCE MOVING FROM [place] 2015. SEASONAL ALLERGIES - Neurologic History Hx Cerebrovascular Accident: No Hx Seizures: No Hx Dementia: No - Endocrine History Hx Diabetes: No Endocrine History Comment: HYPOTHYROID - Renal History Hx Renal Disorders: No - Liver History Hx Hepatic Disorders: No - Neurological & Psychiatric Hx Hx Neurological and Psychiatric Disorders: No - Cancer History Hx Cancer: No - Congenital Disorder History Hx Congenital Disorders: No - GI History Hx Gastrointestinal Disorders: Yes Gastrointestinal History Comment: GERD. HX OF POLYPS - Other Health History Other Health History: SPINAL STENOSIS. BENIGN PAROXYSMAL POSITIONAL VERTIGO 2017 - Chronic Pain History Chronic Pain: Yes (LOWER BACK INTO RT LEG) - Surgical History Prior Surgeries: FARZANA CATARACT. GABG X5 1991. TONSILLECTOMY. LT ING HERNIA. RT CAROTID ENDARECTOMY 2011. DAKOTA PAST 5 YRS ANE Review of Systems Review of Systems: - Exercise capacity METS (RN): 4 METS ANE Patient History - Allergies Allergies/Adverse Reactions: No Known Allergies Allergy (Verified 06/30/17 13:54) - Home Medications Home Medications: Nitroglycerin [Nitrostat 0.4 mg (*)] 0.4 mg SL PRN PRN 06/11/17 [Last Taken 1 Year Ago ~10/22/16] Rosuvastatin Calcium [Crestor 20mg (*)] 20 mg PO DAILY 06/11/17 [Last Taken 08/05 21:00] traZODone [traZODONE 50MG (*)] 25 - 50 mg PO HS 06/11/17 [Last Taken 10/21/17 21 :00] Acetaminophen [Tylenol 325mg (*)] 325 - 650 mg PO Q6 PRN 06/30/17 [Last Taken 2 Weeks Ago ~10/08/17] Albuterol Sulfate [Ventolin Hfa] 2 puffs IH Q4-6PRN PRN 06/30/17 [Last Taken ] Ascorbic Acid [Vitamin C 500 mg (*)] 500 mg PO BID 06/30/17 [Last Taken 10/19/17 ] Aspirin [Aspirin 81mg (*)] 162 mg PO DAILY 06/30/17 [Last Taken 10/15/17] C/E/Zn/Cu/OM3/DHA/EPA/LUT/ZEAX [Preservision Areds 2 Softgel] 1 each PO DAILY [Last Taken 10/19/17] Fluticasone/Salmeter 250/50Mcg [Advair 250/50 (*)] 1 puffs IH BID 06/30/17 [ Last Taken 10/22/17 05:00] Herbals/Supplements -Info Only 1 ea PO DAILY 06/30/17 [Last Taken 10/19/17] Levothyroxine [Synthroid 88 mcg (*)] 88 mcg PO DAILY06 06/30/17 [Last Taken 09/05 05:00] Loratadine [Claritin 10 mg] 10 mg PO DAILY 06/30/17 [Last Taken 10/22/17 05:00] Montelukast Sodium [Singulair 10 mg (*)] 10 mg PO DAILY@1800 06/30/17 [Last Taken 10/21/17 21:00] Multivitamins [Multivitamin (*)] 1 each PO DAILY 06/30/17 [Last Taken 10/19/17] [place]-3 Fatty Acids [Fish Oil 1000 mg (*)] 1,000 mg PO DAILY 06/30/17 [Last Taken 10/19/17] Omeprazole [Prilosec 20 mg] 20 mg PO DAILY 06/30/17 [Last Taken 10/22/17 05:00] Propylene Glycol [Systane Balance] 1 - 2 drops OP DAILY PRN 06/30/17 [Last Taken 10/22/17] Bystolic DAILY 10/09/17 [Last Taken 10/22/17 05:00] Amlodipine Bes/Olmesartan Med HS 10/19/17 [Last Taken 10/21/17 21:00] Advair Hfa 115-21 Mcg Inhaler 10/22/17 [Last Taken Unknown] Gabapentin 10/22/17 [Last Taken 10/21/17 21:00] - NPO status NPO Since - Liquids (Date): 10/22/17 NPO Since - Liquids (Time): 05:00 NPO Since - Solids (Date): 10/21/17 NPO Since - Solids (Time): 19:00 - Smoking Hx Smoking Status: Never smoked ANE Labs/Vital Signs - Vital Signs Blood Pressure: 139/60 Heart Rate: 64 Respiratory Rate: 16 O2 Sat (%): 97 Height: 172.72 cm Weight: 68.039 kg ANE Physical Exam - Airway Neck exam: FROM Mallampati Score: Class 2 Mouth exam: normal dental/mouth exam - Pulmonary Pulmonary: no respiratory distress - Cardiovascular Cardiovascular: regular rate and rhythym - ASA Status ASA Status: III ANE Anesthesia Plan Anesthesia Plan: general endotracheal anesthesia
[2017-10-22] MEDS ORDERED: PROPOFOL/EMULSION 500 MG/50 ML BOTTLE IV ONE (07:20)
[2017-10-22] MEDS ORDERED: DEXAMETHASONE 4 MG/ML VIAL ONE ×2 (07:20)
[2017-10-22] MEDS ORDERED: ROCURONIUM 50 MG/5 ML VIAL ONE (07:21)
[2017-10-22] MEDS ORDERED: PHENYLEPHRINE 10 MG/ML SDV ONE (07:21)
[2017-10-22] MEDS ORDERED: LIDOCAINE 2% 100 MG/5 ML SYR ONE (07:21)
[2017-10-22] MEDS ORDERED: METOCLOPRAMIDE 10 MG/2 ML VIAL ONE (07:21)
[2017-10-22] MEDS ORDERED: SUGAMMADEX SODIUM 200 MG/2 ML VIAL IVP ONE (08:16)
--- NOTE | 2017-10-22 09:14 | POSTOPPROG ---
Post Op Note Date of Operation: 10/22/17 Surgeon: Gladis Moreira Tearoom Host/Hostess: Ynes Sanchez NP Anesthesiologist: Rachel Anesthesia: GET(General Endotracheal) Procedure: Right L4-5 LRD Inf/Abcess present in the surg proc area at time of surgery?: No Depth: Deep Incisional (Fascial) EBL: 50-100 Total fluids administered: see anesthesia Complications: none Date of Surgery: 10/22/17 Post Op Day: 0 Assessment/Plan: Assessment: 82yr old s/p right L4-5 LRD and cyst resection Plan: -Right leg pain seems improved, patient with left lower back pain that started last night -Dc home when criteria met Please call neurosurgery with questions/concerns Subjective: Waking up in PACU Objective: Waking up in PACU No facial droop 5/5 BLE, BUE Sensation intact to light touch BLE Dressing CDI Appropriate Neuro Check Frequency Ordered: Yes
[2017-10-22] MEDS ORDERED: HYDROCODONE/APAP 5/325 TAB PO PRN (09:19)
[2017-10-22] MEDS ORDERED: NALOXONE HCL 0.4 MG/ML INJ IVP PRN (09:20)
[2017-10-22] MEDS ORDERED: fentaNYL 100 MCG/2 ML INJ IVP PRN (09:20)
[2017-10-22] MEDS ORDERED: ALBUTEROL 3 ML DEYVIAL IH PRN (09:20)
[2017-10-22] MEDS ORDERED: oxyCODONE IR 5 MG TAB PO PRN (09:20)
[2017-10-22] MEDS ORDERED: ONDANSETRON 4 MG/2 ML VIAL IVP PRN (09:20)
--- NOTE | 2017-10-22 09:22 | POSTANESTH ---
Post Anesthetic Evaluation Cardiovascular Status: Similar to Pre-Op Cond Respiratory Status: Similar to Pre-op Cond. Level of Consciousness/Mental Status: Alert and Oriented Pain Control: Adequate, Prn Tx Ordered Nausea/Vomiting Control: Adequate, Prn Tx Ordered Complications Possibly Related to Anesthesia: None Noted
[2017-10-22 10:17] VITALS: BP 115/57
--- NOTE | 2017-10-22 10:26 | GOP ---
[f rep st] OPERATIVE REPORT DATE OF OPERATION: 10/22/2017 SURGEON: Alicia Moreira MD TRACTOR OPERATOR: Ynes Sanchez, nurse practitioner. 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 PROCEDURE PERFORMED: Right L4-5 hemilaminotomy, medial facetectomy of the right lateral recess decom pression, L4-5 ([id number]), microscope. FINDINGS: ESTIMATED BLOOD LOSS: 10 cc. INDICATIONS: The patient is an 82-year-old with terrible right leg pain and mild spondylolisthesis a t L4-5. He had severe bilateral facet arthropathy and bilateral recess stenosis at L4-5, but he appe ared to have a synovial cyst and very severe right lateral recess stenosis at L4-5, and I felt this w as the problem. I suggested a right-sided lateral recess decompression alone even though he did have stenosis on the left side. He also had a component of axial low back pain. I thought it was most r easonable given his advanced age to simply tried to decompress the right-sided nerve root. The risk of nerve injury, spinal fluid leak, and continued symptoms was discussed. I did not intend to do a m icrodiskectomy. He knew there was a chance of continued symptoms and possible need for fusion surger y. He wanted to proceed despite the risks. DESCRIPTION OF PROCEDURE: The patient was taken to the operating room, placed in supine position. G eneral anesthesia was begun. A localizing x-ray was taken. He was sterilely prepped and draped in u sual fashion. We anesthetized the paraspinal tissues with 0.25% Marcaine with epinephrine. We made a midline 15 mm incision above the L4-5 interspace. The subcutaneous tissue was dissected us ing Bovie cautery down to the fascia and a subperiosteal dissection was made down the lamina of L4-5 on the right-hand side. Self-retaining tractor was placed. We shot another localizing x-ray. Under the microscope, we drilled a right L4-5 hemilaminotomy and opened the underlying ligamentum flavum a nd decompressed the right lateral recess. There was a fluid-filled synovial cyst coming off the right L4-5 facet joint. It was not adherent to the dura. It was significantly bulging and indenting the right lateral recess, as well as the entry zone for the L5 nerve root sheath into the thecal sac above the 4, 5 disk. This was completely deco mpressed from the top third of the L5 pedicle all the way to the bottom portion of the L4 pedicle, an d we used the foraminotomy Kerrisons to open the neural foramen as well. We did not remove too much of the facet joint. The IAP of L4 was intact at the conclusion of the case. An excellent right late ral recess decompression had been obtained. There was an hourglass appearance to the dura above the L4-5 interspace. We placed some Depo-Medrol above the L5 root and then closed in multiple layers usi ng Vicryl sutures. Blood loss was minimal. COMPLICATIONS: None. /[id number]/MODL
[2017-10-22] MEDS ORDERED: METHOCARBAMOL 750 MG TAB PO SCH (16:00)
== END 2017-10-22 11:51 | disposition home or self-care (01) ==
LOC: FSGY 05:42
PROVIDERS: ATTEND Neurological Surgery
PROC: 00NY0ZZ Release Lumbar Spinal Cord, Open Approach (ICD-10-PCS; principal; 2017-10-22 07:30)
DX: M43.16 Spondylolisthesis, lumbar region (principal); M48.061 Spinal stenosis, lumbar region without neurogenic claudication; M54.17 Radiculopathy, lumbosacral region; I10 Essential (primary) hypertension
CPT/HCPCS: J0171; J0690; J1030; J1100; J2001; J2370; J2704; J2765

== ENCOUNTER → 2017-11-08 | Outpatient (CLI) | payer OTHER | LOC: FIMAGING 13:39 | PROVIDERS: ATTEND Nurse Practitioner | DX: M51.26 Other intervertebral disc displacement, lumbar region (principal); Z98.890 Other specified postprocedural states ==

== ENCOUNTER → 2018-05-03 | Outpatient (CLI) | payer OTHER | LOC: FIMAGING 09:54 | PROVIDERS: ATTEND Internal Medicine Cardiovascular Disease | DX: I25.10 Atherosclerotic heart disease of native coronary artery without angina pectoris (principal); Z98.890 Other specified postprocedural states ==

== ENCOUNTER → 2018-05-07 | Outpatient (CLI) | payer OTHER ==
[~2018-05-07] MED LIST: IOPAMIDOL (ISOVUE 370) 100 ML BTL IV ONE
== END ==
LOC: FIMAGING 09:09
PROVIDERS: ATTEND Internal Medicine Cardiovascular Disease
DX: I65.23 Occlusion and stenosis of bilateral carotid arteries (principal)
CPT/HCPCS: 70498; Q9967; 82565-PO

== ENCOUNTER 2018-05-16 22:50 | Inpatient (IN) | payer OTHER ==
[2018-05-16 23:06] LABS: PLATELET COUNT 297 10^3/uL (150-400)
--- NOTE | 2018-05-16 23:16 | EDPHY ---
H & P Stated Complaint: syncope Time Seen by Provider: 05/16/18 23:00 HPI/ROS: Chief Complaint: Syncope HPI: 82-year-old male with a history of coronary artery disease and carotid disease was meditating tonight when he had a witnessed syncopal episode. Two was in a seated position when he lost consciousness. His found hit the floor. He had a similar episode about 9 months ago and was seen by his preform machine operator. He might with Dr. Garvin earlier today is scheduled for a carotid endarterectomy next week. Did not have any chest pain or palpitations. No shortness of breath. No recent illness. He did receive a varicella vaccination today. ROS: 10 systems were reviewed and were negative except those elements noted in the HPI. PMH: Coronary artery disease status post coronary artery bypass graft, carotid stenosis Social History: No smoking, no alcohol, no recreational drug use Family History: non-contributory Physical Exam: Gen: Awake, Alert, No Distress HEENT: Nose: no rhinorrhea Eyes: PERRLA, EOMI Mouth: Moist mucosa Neck: Supple, no JVD Chest: nontender, lungs clear to auscultation Heart: S1, S2 normal, no murmur Abd: Soft, non-tender, no guarding Back: no CVA tenderness, no midline tenderness Ext: no edema, non-tender Skin: no rash Neuro: CN II-XII intact, Sensation grossly intact, Strength 5/5 in bilateral upper and lower extremities - Personal History Current Tetanus/Diphtheria Vaccine: Yes Current Tetanus Diphtheria and Acellular Pertussis (TDAP): Yes - Medical/Surgical History Hx Asthma: Yes Hx Chronic Respiratory Disease: No Hx Diabetes: No Hx Cardiac Disease: Yes Hx Renal Disease: No Hx Cirrhosis: No Hx Alcoholism: No Hx HIV/AIDS: No Hx Splenectomy or Spleen Trauma: No Other PMH: CABGx4-5 in 1992. Asystole during angiogram 1995. HTN. High cholesterol. Asthma, arthritis, coronary artery disease. R CEA p unusual visual sxs. Syncope. L inguinal hernia repair. Bilateral cateract surgery, hernia, tonsillectomy, spine L5. Lower spine pain, non-surgical - Social History Smoking Status: Never smoked Constitutional: Initial Vital Signs Temperature (C) 36.5 C 05/16/18 22:57 Heart Rate 66 05/16/18 22:57 Respiratory Rate 16 05/16/18 22:57 Blood Pressure 141/59 H 05/16/18 22:57 O2 Sat (%) 95 05/16/18 22:57 O2 Delivery Mode Room Air Allergies/Adverse Reactions: No Known Allergies Allergy (Verified 05/16/18 23:01) Home Medications: Medication Instructions Recorded Nitroglycerin [Nitrostat 0.4 mg 0.4 mg SL PRN PRN 06/11/17 (*)] Rosuvastatin Calcium [Crestor 20mg 20 mg PO DAILY 06/11/17 (*)] traZODone [traZODONE 50MG (*)] 25 - 50 mg PO HS 06/11/17 Acetaminophen [Tylenol 325mg (*)] 325 - 650 mg PO Q6 PRN 06/30/17 Albuterol Sulfate [Ventolin Hfa] 2 puffs IH Q4-6PRN PRN 06/30/17 Ascorbic Acid [Vitamin C 500 mg 500 mg PO BID 06/30/17 (*)] C/E/Zn/Cu/OM3/DHA/EPA/LUT/ZEAX 1 each PO DAILY 06/30/17 [Preservision Areds 2 Softgel] Fluticasone/Salmeter 250/50Mcg 1 puffs IH BID 06/30/17 [Advair 250/50 (*)] Herbals/Supplements -Info Only 1 ea PO DAILY 06/30/17 Levothyroxine [Synthroid 88 mcg 88 mcg PO DAILY06 06/30/17 (*)] Loratadine [Claritin 10 mg] 10 mg PO DAILY 06/30/17 Montelukast Sodium [Singulair 10 10 mg PO DAILY@1800 06/30/17 mg (*)] Multivitamins [Multivitamin (*)] 1 each PO DAILY 06/30/17 Phillips-3 Fatty Acids [Fish Oil 1000 1,000 mg PO DAILY 06/30/17 mg (*)] Omeprazole [Prilosec 20 mg] 20 mg PO DAILY 06/30/17 Propylene Glycol [Systane Balance] 1 - 2 drops OP DAILY PRN 06/30/17 Losartan Potassium [Cozaar 50 mg 50 mg PO DAILY #30 tab 07/01/17 (*)] Bystolic DAILY 10/09/17 Amlodipine Bes/Olmesartan Med HS 10/19/17 Advair Hfa 115-21 Mcg Inhaler 10/22/17 Aspirin [Aspirin 81mg (*)] 162 mg PO DAILY 30 Days #0 10/22/17 Gabapentin 10/22/17 Medical Decision Making - Diagnostics EKG Interpretation: ECG time 8:58 p.m., sinus rhythm with a rate of 60, will axis, normal intervals , there is a right bundle, no acute ST or T-wave changes. ED Course/Re-evaluation: 82-year-old male with significant risk factors after a syncopal episode while seated. ECG shows no acute changes. Patient has a mild leukocytosis but this is likely secondary to his recent varicella vaccination. No other obvious source of infection. Troponin is normal. I have discussed with the hospitalist to plan for admission for further observation. - Data Points Laboratory Results: Laboratory Results 05/16/18 22:40 05/16/18 22:40 05/16/18 05/16/18 05/16/18 23:01 22:40 22:40 WBC 16.97 10^3/uL H 10^3/uL (3.80-9.50) RBC 5.55 10^6/uL 10^6/uL (4.40-6.38) Hgb 12.0 g/dL L g/dL (13.7-17.5) Hct 36.8 % L % (40.0-51.0) MCV 66.3 fL L fL (81.5-99.8) MCH 21.6 pg L pg (27.9-34.1) MCHC 32.6 g/dL g/dL (32.4-36.7) RDW 15.7 % H % (11.5-15.2) Plt Count 297 10^3/uL 10^3/uL (150-400) MPV 10.2 fL fL (8.7-11.7) Neut % (Auto) Not Reported Lymph % (Auto) Not Reported [place] % (Auto) Not Reported Eos % (Auto) Not Reported Baso % (Auto) Not Reported Nucleat RBC Rel Count Not Reported Absolute Neuts (auto) Not Reported Absolute Lymphs (auto) Not Reported Absolute Monos (auto) Not Reported Absolute Eos (auto) Not Reported Absolute Basos (auto) Not Reported Absolute Nucleated RBC Not Reported Immature Gran % Not Reported Seg Neutrophils % 63.4 % % Band Neutrophils % 0.0 % % Lymphocytes % 23.7 % % Monocytes % 8.9 % % Eosinophils % 2.0 % % Basophils % 2.0 % % Metamyelocytes % 0.0 % % Myelocytes % 0.0 % % Promyelocytes % 0.0 % % Blast Cells % 0.0 % % Immature Gran # Not Reported Absolute Seg Neuts 10.76 10^3/uL H 10^3/uL (1.70-6.50) Absolute Band Neuts 0.00 10^3/uL 10^3/uL (0.00-0.70) Absolute Lymphocytes 4.02 10^3/uL H 10^3/uL (1.00-3.00) Absolute Monocytes 1.51 10^3/uL H 10^3/uL (0.30-0.80) Absolute Eosinophils 0.34 10^3/uL 10^3/uL (0.03-0.40) Absolute Basophils 0.34 10^3/uL H 10^3/uL (0.02-0.10) Absolute Metamyelocyte 0.00 10^3/mL 10^3/mL (0.00-0.00) Absolute Myelocytes 0.00 10^3/mL 10^3/mL (0.00-0.00) Absolute Promyelocytes 0.00 10^3/uL 10^3/uL (0.00-0.00) Absolute Plasma Cells 0.00 10^3/uL 10^3/uL (0.00-0.00) Nucleated RBCs 0 /100 WBC /100 WBC (0-0) Absolute Blast Cells 0.00 10^3/uL 10^3/uL (0.00-0.00) Plasma Cells % 0.0 % % Platelet Estimate ADEQUATE (ADEQ) Polychromasia 1+ H Hypochromasia 3+ H Microcytic Cells 3+ H Target Cells 1+ H Tear Drop Cells 1+ H Elliptocytes 1+ H Schistocytes 1+ H Smear Review By Pending Sodium 131 mEq/L L mEq/L (135-145) Potassium 4.1 mEq/L mEq/L (3.5-5.2) Chloride 100 mEq/L mEq/L (97-110) Carbon Dioxide 25 mEq/l mEq/l (22-31) Anion Gap 6 mEq/L mEq/L (6-14) BUN 18 mg/dL mg/dL (7-23) Creatinine 0.9 mg/dL mg/dL (0.7-1.3) Estimated GFR > 60 Glucose 104 mg/dL H mg/dL (70-100) Calcium 8.9 mg/dL mg/dL (8.5-10.4) POC Troponin I 0.01 ng/mL ng/mL (0.00-0.08) Point of Care Test Results: Chemistry 05/16/18 23:01 POC Troponin I 0.01 ng/mL ng/mL (0.00-0.08) Departure - Departure Disposition: [facility] Inpatient Acute Clinical Impression: Syncope Condition: Fair
[2018-05-17] MEDS ORDERED: ONDANSETRON 4 MG/2 ML VIAL IVP PRN ×2 (00:23→18:50)
[2018-05-17] MEDS ORDERED: ONDANSETRON DISINTEGRATING 4 MG TAB PO PRN (00:23)
[2018-05-17] MEDS ORDERED: ALBUTEROL 3 ML DEYVIAL IH PRN ×2 (00:23→18:50)
[2018-05-17] MEDS: NS 1,000 ML IV SCH ×2 (01:25→21:30)
--- NOTE | 2018-05-17 02:17 | CPEKG ---
Test Reason : OPEN Blood Pressure : / mmHG Vent. Rate : 060 BPM Atrial Rate : 061 BPM P-R Int : 183 ms QRS Dur : 152 ms QT Int : 492 ms P-R-T Axes : 057 -25 048 degrees QTc Int : 492 ms Sinus rhythm Right bundle branch block Confirmed by Alek Dickens ([id number]) on 05/17/2018 2:16:49 AM Referred By: Confirmed By:Alek Dickens
--- NOTE | 2018-05-17 03:50 | GHP ---
DATE OF ADMISSION: 05/16/2018 PRIMARY LOANS CONSULTANT: Dr. Trevon Hollis. GENERA SURGEON: Dr. Sanchez Garvin. SOURCE: Patient provides history, appears reliable. EMR was reviewed and case discussed with ED pro vider. CHIEF COMPLAINT: Syncope. HISTORY OF PRESENT ILLNESS: This is a very pleasant -oygy-enc gentleman with past medical history significant for CAD status post CABG in 1995, history of carotid artery stenosis status post a right CEA and currently with an 80% stenosis reported on the left, scheduled for CEA in May, as thma, HTN, HLD, chronic low back pain, hypothyroidism, GERD, who presents to the emergency department today via EMS after he had a syncopal episode. The patient reports that he was sitting on the sofa after he had his evening tea and evening medicati ons, including some of his antihypertensives, which he cannot recall which one. He reports that he d eveloped sudden onset of lightheadedness, leaned his head and arm on the arm rest, and subsequently l ost consciousness. His was present, reports that the patient was unresponsive for 1-2 minutes. Preceding this epis ode, the patient does report he felt lightheaded, but denies any changes in vision, chest pain, short ness of breath, palpitations, or focal deficits. Patient shortly afterward reports that he felt perf ectly fine. He discussed with his whether he needed to be evaluated. She discussed with their son, who is a physician here at [facility], and patient subsequently reports that EMS evaluated him, did orthostatics, an d states that he did have some drop in blood pressure with standing. The patient reports that he has a history of hyponatremia. He previously was drinking 80 ounces of t otal fluid per day. He had was admitted in June of 2017 for syncopal episode. He had his thiazi de diuretic and antihypertensive medication list adjusted. The patient reports that he has decreased his daily oral intake to 60 ounces per day. He is noted to have chronic hyponatremia which was thou ght secondary to diuresis as well as increased free water intake. The patient denies any lower extre mity edema, orthopnea, or PND. REVIEW OF SYSTEMS: Ten systems reviewed, negative except as noted above. ALLERGIES: No known drug allergies. HOME MEDICATIONS: The patient has increased his 81 mg aspirin regimen to 324 mg due to his carotid a rtery stenosis. Additional home medications, nitroglycerin sublingual p.r.n., Crestor 20 mg p.o. mac ly, trazodone 25-50 mg p.o. at bedtime, Tylenol 325-650 mg p.o. q.6 hours p.r.n., albuterol 2 puffs i nhaled every 4-6 hours p.r.n., vitamin C 500 mg p.o. b.i.d., Preservision AREDS 2 one tablet p.o. mac ly, Advair 250/50 mcg 1 puff inhaled b.i.d., herbal supplements, levothyroxine 88 mcg p.o. daily in morning, loratadine 10 mg p.o. daily, Singulair 10 mg p.o. daily, multivitamin 1 tablet p.o. daily , [place]-3 1000 mg p.o. daily, omeprazole 20 mg p.o. daily, Systane drops p.r.n., losartan 50 mg p.o. daily, Bystolic daily, amlodipine at bedtime, gabapentin. PAST MEDICAL HISTORY: Significant for CAD status post CABG in , carotid artery stenosis bilater ally status post right CEA previously, asthma, HTN, HLD, osteoarthritis, history of syncope, admitted June 2017, chronic low back pain, history of spinal stenosis status post intervention, hypothyro idism, GERD. PAST SURGICAL HISTORY: Right CEA, left inguinal hernia repair, bilateral cataract extraction with le ns placement, tonsillectomy, adenoidectomy, spine L5, scheduled left CEA. FAMILY HISTORY: Negative for VTE or sudden cardiac . SOCIAL HISTORY: Patient is , lives with his . He reports that he remains quite active an d exercises regularly. He does not smoke, drink, or utilize any illicit drugs. CODE STATUS: Full. PHYSICAL EXAMINATION: VITAL SIGNS: Upon arrival, blood pressure 141/59, heart rate 66, respiratory rate 16, O2 saturation 95% on room air, temperature 36.5. CURRENT VITALS: Blood pressure 108/56, he art rate 63, respiratory rate 14, O2 saturation 94% on room air. GENERAL: No acute distress, very p leasant adult gentleman is lying quietly in bed. HEAD: Normocephalic, atraumatic. EYES: Extraocul ar muscles grossly intact. Pupils equal, round, symmetric. Lens reflex appreciated bilaterally. No scleral icterus or conjunctival injection. ENT: Mucous membranes appear slightly dry. No orophary ngeal erythema or exudates. No nasal discharge. NECK: Supple. Trachea midline. CARDIOVASCULAR: Regular rate and rhythm. Slightly distant heart sounds. Limits exam. No murmurs, rubs, or gallops appreciated. RESPIRATORY: Lungs are clear to auscultation bilaterally. No wheezes, rales, or rhonc hi. Unlabored breathing. ABDOMEN: Positive bowel sounds. Soft, nontender to palpation. No reboun d, guarding, or masses appreciated. : No suprapubic tenderness to palpation. No Alfred catheter i n place. EXTREMITIES: No cyanosis, clubbing, edema appreciated. Patient with 1+ pedal pulses bilate rally and symmetric. NEUROLOGIC: Grossly nonfocal. No facial drooping. Moves all extremities. Tu rns in bed independently. PSYCHIATRIC: Thought process, content, and questions are appropriate. Tk echeverria is pleasant and cooperative. He is in good spirits. LABORATORY DATA: 1. WBC 16.97, H and H is 12.0 and 36.8, MCV of 66.3, platelet count is 297, no bands. 2. Sodium is 131, potassium 4.1, chloride is 100, CO2 25, anion gap is 6, BUN 18, creatinine is 0.9. GFR greater than 60. Glucose 104, calcium 8.9. Troponin POC is 0.01. 3. EKG reviewed myself showing normal sinus rhythm in the 60s. Right bundle branch block. QTc 492. Bundle branch block is chronic. ASSESSMENT AND PLAN: A very pleasant 82-year-old gentleman with a past medical history significant f or coronary artery disease with history of coronary artery bypass graft, carotid artery stenosis, ast hma, hypertension, and hyperlipidemia who presents to the emergency department today following a sync opal episode at home. 1. Syncope. Differential diagnosis including orthostatic or vagal or medication related versus ritter tid artery stenosis at 80%. The patient does report that he had a drop in blood pressure prior to ar rival with orthostatic pressures. Will plan to repeat here in the ED, supplement IV fluids. Patient does also endorse that he has cut back on his oral intake from 80 to 60 ounces. We will plan to rep eat laboratory studies in the morning. Check TSH. Additional discussion with Cardiology and General Surgery in the morning as per day team. The patient is scheduled to have a left CEA with Dr. Garvin in May. Fall precautions. Up with assist. 2. Leukocytosis. Patient reports receiving Zostavax earlier in the day. He is afebrile. We will p alma delia to IV fluid hydrate gently and then repeat CBC in the morning. Do not suspect infectious etiolog y. 3. Carotid artery stenosis. Patient reports 80%. Plan as noted above. 4. Hyponatremia. Patient reports this is chronic in nature, previously thought due to hypervolemia or due to diuretics, which have been previously discontinued. Patient does appear slightly dry. We will plan to IV fluid hydrate with gentle rate with normal saline. 5. Chronic medical issues. a. Coronary artery disease, hypertension, and hyperlipidemia. Plan to resume patient's cardiac medi cations as noted per list. Continue aspirin 325 per formulary. b. Asthma without exacerbation. Continue patient's home medications. If he should stay additional day, p.r.n. albuterol is available. c. Hypothyroidism. Continue patient's levothyroxine replacement. TSH in the morning. d. Gastroesophageal reflux disease. Continue PPI per formulary. 6. Fluid, electrolyte, nutrition. IV fluids normal saline 75 mL/h. Electrolytes acceptable at this time with excepted notation of sodium as noted above. The patient will be made n.p.o. pending addit ional discussions with specialists in the morning. 7. Prophylaxis. Sequential compression devices, holding anticoagulation pending plan as noted above . 8. Code status. Full. 9. Disposition. Patient admitted to observation status on PCU floor for close cardiac monitoring an d additional development of plan as noted above. /[id number]/MODL
[2018-05-17 05:55] LABS: PLATELET COUNT 266 10^3/uL (150-400)
[2018-05-17] MEDS ORDERED: ceFAZolin 2 GM/DEXTROSE 100 ML IV ONE (11:51)
[2018-05-17] MEDS ORDERED: HYDROmorphONE/DILAUDID 1 MG/ML INJ IVP PRN (11:53)
--- NOTE | 2018-05-17 12:48 | GCON ---
CARDIOLOGY CONSULTATION DATE OF CONSULTATION: 05/17/2018 INDICATION FOR CONSULTATION: Preoperative cardiovascular exam in anticipation of left carotid endart erectomy in the setting of recent syncopal episode and known severe left carotid stenosis. CONSULTING PHYSICIAN: Dr. Johnnie Garvin. HISTORY OF PRESENT ILLNESS: Mr. Du is a pleasant 82-year-old gentleman well-known to [facility], primarily followed by Dr. Trevon Hollis, with a known history of coronary artery disease status po st 4 vessel CABG in April 1992, history of PCI in 2003. He has known history of carotid artery di sease with right carotid endarterectomy. Past medical history is also notable for hypertension, hype rlipidemia, chronic back pain, hypothyroidism, and chronic hyponatremia, who was in his usual state o f health until last evening when he was doing his regular meditation around 9:15 p.m. prior to going to bed. He states that while sitting on the couch doing meditation he began to feel lightheaded and near syncopal. He called to his and when his arrived from the other room he had lost consc iousness and was unresponsive. Report demonstrates that he was unresponsive for 1-2 minutes. When h e awoke, he states within minutes he felt back to baseline. surgical instrument mechanic were called. Examination at home d emonstrated orthostatic vital signs with drop in systolic blood pressure with standing. He was broug ht to [facility] for further evaluation. Workup in the ER has been relatively unremarkable. ECG demonstrates sinus rhythm with known right bu ndle branch block. LAB WORK: Demonstrates hemoglobin of 11.3 and hematocrit of 34.3, BUN 16, creatinine 0.8, and tropon in 0.01. I was asked to see Mr. Du for consideration of right carotid endarterectomy surgery. He is sched uled for surgery for next week and with his recent events, was considered for surgery today. He is c urrently n.p.o. Mr. Du is physically active. He exercises for 70 minutes 5 days a week. He exercises on the [employer] for 30-40 minutes and does weights. He has no complaints of chest pain, chest pressure, short ness of breath, or dyspnea on exertion. No complaints of exertional intolerance or fatigue. He has no complaints of palpitations or dizziness. He has no complaints of PND, orthopnea, or lower extremi ty edema. He has no complaints of exertional back pain, flank pain, or epigastric discomfort. He is compliant with his medications. He has undergone pharmacologic nuclear stress test in August 2017 demonstrating normal perfusion with no evidence of ischemia. Echocardiogram from June 2017 demonstrates normal left ventricular size and function with LVEF of 66%. He does have moderate aortic insufficiency. No evidence of aortic s tenosis. Atrial dimensions are normal. Pulmonary pressure is normal with RV systolic pressure of 30 mmHg. He did undergo a 7-day cardiac cath tech in June 2017 demonstrating normal sinus rhythm wit h an average rate of 76 beats per minute with rates ranging between 55 and 107 beats per minute. He did have 8% PVC burden. No evidence of atrial fibrillation. No pauses. Lipids are generally well controlled with LDL of 77 from lab work of November 2017. 10-point review of systems negative with the exception of syncope. Of note, he has had similar synco pal episodes in the past. Earlier this year, workup was unremarkable. MEDICATIONS ON ADMISSION: Include Bystolic 5 mg daily, aspirin 325 mg daily, losartan 100 mg daily, Crestor 20 mg daily, ibuprofen 200 mg p.o. t.i.d., Tylenol 325 mg q.6 hours p.r.n., Advair 1 puff b.i .d., vitamin C 500 mg daily, albuterol 1-2 puffs q.4 hours p.r.n., multivitamin 1 daily, Claritin 10 mg daily p.r.n., Synthroid 88 mcg daily, trazodone 50 mg p.o. at bedtime, Systane eyedrops 1-2 drops daily as needed, Prilosec 20 mg daily, fish oil 1000 mg daily, nitroglycerin 0.4 mg sublingual p.r.n. chest pain. ALLERGIES: To medications: None. PAST MEDICAL HISTORY: 1. Coronary artery disease status post CABG in April 1992. 2. History of PCI in 2003. In reviewing Dr. Hollis's note, has a history of VF requiring defibrillat ion with PCI in 2003. 3. Hypertension. 4. Hyperlipidemia. 5. Hypothyroidism. 6. Hyponatremia. 7. COPD. PAST SURGICAL HISTORY: 1. Coronary artery bypass graft surgery April 1992. 2. Right carotid endarterectomy surgery. 3. Tonsillectomy. 4. Cataract surgery. 5. L5 spinal fusion. SOCIAL HISTORY: He is . He lives with his . He is physically active. He exercises [employer]. His son is a neurosurgeon at [facility]. PHYSICAL EXAMINATION: VITAL SIGNS: Blood pressure 134/58, heart rate of 79, oxygen saturation 95% o n room air, respiratory rate of 16, temperature 36.4. GENERAL: He is awake, alert, oriented, approp riate. No apparent distress. There is no evidence of JVP. He does have an audible carotid bruit of the left neck. CARDIAC: S1, S2. Regular rate and rhythm. No murmurs, rubs, or gallops. LUNGS: Clear to auscultation. ABDOMEN: Soft, nontender, nondistended. EXTREMITIES: Distal pulses are int act. No evidence of cyanosis, clubbing or edema. DATA: Lab work demonstrates white blood cell count of 14.4, hemoglobin 11.3, hematocrit of 34.3, jennyfer telet count 266, sodium 134, potassium 4.5, chloride 105, bicarb 23, BUN 16, creatinine 0.8. ECG dem onstrates sinus rhythm with right bundle branch block. No change in ECG compared to previous study p erformed September 20, 2016. Nuclear stress test August 2017, normal perfusion and function. Echocardiogram June 2017, normal left ventricular size and function with LVEF of 66%. Normal atr ial dimensions. Normal pulmonary pressure. Moderate aortic insufficiency. Mild mitral regurgitatio n. Seven day cardiac cath tech in June 2016, normal sinus rhythm. IMPRESSION: 1. Preoperative cardiovascular exam in anticipation of left carotid endarterectomy. 2. History of coronary artery disease status post coronary artery bypass graft. 3. Hypertension. 4. Hyperlipidemia. 5. Known carotid artery disease. Mr. Du is a pleasant 82-year-old gentleman who is physically active, exercises for 70 minutes at least 5 days a week without symptoms. He has had a nuclear stress test in August 2017 demonstrating n ormal perfusion. Echocardiogram from June 2017 demonstrates normal left ventricular function. S even day cardiac cath tech in June 2017 demonstrates sinus rhythm with an average of 76 and 8% PVC burden in the setting of an 82-year-old gentleman with new syncopal episodes and evidence of signific ant left carotid stenosis with recent cardiac workup within the last 12 months without symptoms. He is an appropriate candidate for surgery at this time. Given his history, he is moderate risk; howeve r, with recent testing and his excellent exercise tolerance there is no indication for further preope rative cardiovascular examination. Recommend he remain on his current medical therapy. I have conta cted Dr. Johnnie Garvin and updated him with my findings and plan to pursue surgery today. PLAN: 1. No further cardiology preoperative testing. 2. Patient is stable for a left carotid endarterectomy to be performed today. 3. I have reviewed his case in detail with Dr. Johnnie Garvin. /[id number]/MODL
[2018-05-17] MEDS ORDERED: LR 1,000 ML IV ONE (14:49)
[2018-05-17] MEDS ORDERED: BUPIVACAINE 0.5% 30 ML SDV ONE (15:09)
[2018-05-17] MEDS ORDERED: PROTAMINE SULFATE 50 MG/5 ML VIAL IVP ONE ×2 (15:09→18:06)
[2018-05-17] MEDS ORDERED: THROMBIN (BOVINE) 20,000 UNIT SPRAY TP ONE (15:09)
[2018-05-17] MEDS ORDERED: CEFAZOLIN 2 GM/DEXTROSE/100 ML BAG IV ONE (15:23)
[2018-05-17] MEDS ORDERED: PROPOFOL/EMULSION 500 MG/50 ML BOTTLE IV ONE (15:35)
[2018-05-17] MEDS ORDERED: REMIFENTANIL HCL 1 MG VIAL ONE (15:35)
[2018-05-17] MEDS ORDERED: LIDOCAINE 2% 100 MG/5 ML SYR ONE (15:37)
[2018-05-17] MEDS ORDERED: HEPARIN 10,000 UNIT/10 ML MDV (1,000 UNIT/ML) ONE (15:37)
[2018-05-17] MEDS ORDERED: DEXAMETHASONE 4 MG/ML VIAL ONE (15:37)
[2018-05-17] MEDS ORDERED: ONDANSETRON 4 MG/2 ML VIAL ONE (15:37)
[2018-05-17] MEDS ORDERED: PHENYLEPHRINE 10 MG/ML SDV ONE (15:37)
[2018-05-17] MEDS ORDERED: fentaNYL 100 MCG/2 ML INJ ONE (15:39)
[2018-05-17] MEDS ORDERED: PROPYLENE GLYCOL OP PRN (16:40)
[2018-05-17] MEDS ORDERED: ALBUTEROL 60 PUFFS/8 GM MDI IH PRN (16:40)
--- NOTE | 2018-05-17 16:40 | HOSPPROG ---
Hospitalist Progress Note Assessment/Plan: #Syncope: recent stress August 2017 negative for ischemia. Echo 07/08 with normal EF, mod AI, but no . Feels better after hydration #L carotid stenosis: planned surgery next week, but Dr. Garvin to perform today -Appreciate Dr. Loera's consultation. No further cardiac eval warranted; is a moderate cardiac risk for surgery #PVCs #HLD: statin #Hypothyroidism: LT4 #Hyponatremia, hypovolemic: improved with IVFs #HTN: normotensive now. Add back BP meds as needed #Diet: regular after surgery #DVT ppx: SCDs #Disp: inpatient admission for L CEA. Discussed with Dr. Garvin, Dr. Loera Subjective: no CP, SOB or dizziness today Objective: Vital Signs Temp Pulse Resp BP Pulse Ox 36.5 C 68 15 135/75 H 96 05/17/18 15:40 05/17/18 15:40 05/17/18 15:40 05/17/18 15:40 05/17/18 15:40 Laboratory Results 05/17/18 05:30 05/17/18 05:30 05/16/18 05/17/18 05/18/18 05:59 05:59 05:59 Intake Total 750 Balance 750 - Time Spent With Patient Time Spent with Patient: greater than 35 minutes Time Spent with Patient: Greater than 35 minutes spent on this patients care, greater than 50% of time spent counseling, educating, and coordinating care regarding the above mentioned plan. - Physical Exam Constitutional: no apparent distress Eyes: PERRL Ears, Nose, Mouth, Throat: moist mucous membranes Cardiovascular: regular rate and rhythym, other (left carotid bruit), No edema Respiratory: no respiratory distress Gastrointestinal: normoactive bowel sounds Genitourinary: no bladder fullness Skin: warm Musculoskeletal: full muscle strength Neurologic: AAOx3, CN II-XII Intact Psychiatric: interacting appropriately ICD10 Worksheet Patient Problems: Problems Problem Status Onset Syncope Acute PVC (premature ventricular contraction) Acute
--- NOTE | 2018-05-17 17:01 | PDANEPAE ---
ANE History of Present Illness l carotid stenosis s/f L CEA ANE Past Medical History - Cardiovascular History Hx Hypertension: Yes Hx Arrhythmias: Yes Hx Chest Pain: No Hx Coronary Artery / Peripheral Vascular Disease: Yes Hx CHF / Valvular Disease: No Hx Palpitations: No Cardiovascular History Comment: POST ANGIOGRAM 1994 HEART STOPPED. HX PVC'S - Pulmonary History Hx COPD: No Hx Asthma/Reactive Airway Disease: Yes Hx Recent Upper Respiratory Infection: No Hx Oxygen in Use at Home: No Hx Sleep Apnea: No Sleep Apnea Screening Result - Last Documented: Positive Pulmonary History Comment: SOB SINCE MOVING FROM [place] 2015. SEASONAL ALLERGIES - Neurologic History Hx Cerebrovascular Accident: No Hx Seizures: No Hx Dementia: No - Endocrine History Hx Diabetes: No Endocrine History Comment: HYPOTHYROID - Renal History Hx Renal Disorders: No - Liver History Hx Hepatic Disorders: No - Neurological & Psychiatric Hx Hx Neurological and Psychiatric Disorders: No - Cancer History Hx Cancer: No - Congenital Disorder History Hx Congenital Disorders: No - GI History Hx Gastrointestinal Disorders: Yes Gastrointestinal History Comment: GERD. HX OF POLYPS - Other Health History Other Health History: SPINAL STENOSIS. BENIGN PAROXYSMAL POSITIONAL VERTIGO 2017 - Chronic Pain History Chronic Pain: Yes (LOWER BACK INTO RT LEG) - Surgical History Prior Surgeries: FARZANA CATARACT. GABG X5 1991. TONSILLECTOMY. LT ING HERNIA. RT CAROTID ENDARECTOMY 2011. [place] PAST 5 YRS ANE Review of Systems Review of Systems: - Exercise capacity METS (RN): 3 METS ANE Patient History - Allergies Allergies/Adverse Reactions: No Known Allergies Allergy (Verified 05/16/18 23:01) - Home Medications Home medications: home medication list seen and reviewed Home Medications: Nitroglycerin [Nitrostat 0.4 mg (*)] 0.4 mg SL PRN PRN 06/11/17 [Last Taken 1 Year Ago ~10/22/16] Rosuvastatin Calcium [Crestor 20mg (*)] 20 mg PO DAILY 06/11/17 [Last Taken ] traZODone [traZODONE 50MG (*)] 25 - 50 mg PO HS 06/11/17 [Last Taken 05/15/18] Acetaminophen [Tylenol 325mg (*)] 325 - 650 mg PO Q6 PRN 06/30/17 [Last Taken 2 Weeks Ago ~10/08/17] Ascorbic Acid [Vitamin C 500 mg (*)] 500 mg PO DAILY 06/30/17 [Last Taken ] C/E/Zn/Cu/OM3/DHA/EPA/LUT/ZEAX [Preservision Areds 2 Softgel] 1 each PO BID 03/07 [Last Taken 05/16/18 09:00] Fluticasone/Salmeter 250/50Mcg [Advair 250/50 (*)] 1 puffs IH BID 06/30/17 [ Last Taken 05/16/18 21:00] Herbals/Supplements -Info Only 1 ea PO DAILY 06/30/17 [Last Taken 10/19/17] Levothyroxine [Synthroid 88 mcg (*)] 88 mcg PO DAILY06 06/30/17 [Last Taken ] Loratadine [Claritin 10 mg] 10 mg PO DAILY PRN 06/30/17 [Last Taken 10/22/17 05: 00] Multivitamins [Multivitamin (*)] 1 each PO DAILY 06/30/17 [Last Taken 05/16/18] [place]-3 Fatty Acids [Fish Oil 1000 mg (*)] 1,000 mg PO DAILY 06/30/17 [Last Taken 05/16/18] Omeprazole [Prilosec 20 mg] 20 mg PO DAILY 06/30/17 [Last Taken 05/16/18] Propylene Glycol [Systane Balance] 1 - 2 drops OP DAILY PRN 06/30/17 [Last Taken 10/22/17] Nebivolol HCl [Bystolic 5 mg (*)] 5 mg PO DAILY #0 10/09/17 [Last Taken 05/16/18 ] Albuterol [Proventil Inhaler HFA (*)] 1 - 2 puffs IH Q4H PRN 05/17/18 [Last Taken Unknown] Aspirin [Aspirin 325 mg (*)] 325 mg PO DAILY 05/17/18 [Last Taken 05/16/18] Ibuprofen [Motrin (*)] 200 mg PO TID 05/17/18 [Last Taken 05/16/18] Losartan Potassium [Cozaar 50 mg (*)] 100 mg PO DAILY 05/17/18 [Last Taken 05/16] - NPO status NPO Status: no food or drink >8 hours NPO Since - Liquids (Date): 05/16/18 NPO Since - Liquids (Time): 20:00 NPO Since - Solids (Date): 05/16/18 NPO Since - Solids (Time): 20:00 - Anes Hx Anes Hx: no prior problems - Smoking Hx Smoking Status: Never smoked - Alcohol Use Alcohol Use: None - Family Anes Hx Family Anes Hx: none ANE Labs/Vital Signs - Labs Result Diagrams: 05/17/18 05:30 05/17/18 05:30 - Vital Signs Blood Pressure: 135/75 Heart Rate: 68 Respiratory Rate: 15 O2 Sat (%): 96 Height: 172.72 cm Weight: 67.2 kg ANE Physical Exam - Airway Mallampati Score: Class 2 Mouth exam: normal dental/mouth exam, small mouth opening - Pulmonary Pulmonary: no respiratory distress - Cardiovascular Cardiovascular: regular rate and rhythym - ASA Status ASA Status: III ANE Anesthesia Plan Anesthesia Plan: general endotracheal anesthesia Lines/Monitors: arterial line
--- NOTE | 2018-05-17 18:22 | POSTOPPROG ---
Post Op Note Date of Operation: 05/17/18 Surgeon: Sanchez Garvin Truck Dispatcher: Osvaldo Coles Anesthesiologist: Dr Trujillo Anesthesia: GET(General Endotracheal) Pre-op Diagnosis: Left Carotid stenosis Post-op Diagnosis: same Indication: stenosis, risk of stroke Procedure: L CEA Findings: plaque at bifurcation Inf/Abcess present in the surg proc area at time of surgery?: No Depth: Deep Incisional (Fascial) EBL: 50-100 Specimen(s): plaque
[2018-05-17] MEDS ORDERED: PHENYLEPHRINE HCL 100 MCG/ML SYR IVP PRN (18:50)
[2018-05-17] MEDS ORDERED: LABETALOL HCL 5 MG/ML 20 ML MDV IVP PRN (18:50)
[2018-05-17] MEDS ORDERED: fentaNYL 100 MCG/2 ML INJ IVP PRN (18:50)
[2018-05-17] MEDS ORDERED: DEXAMETHASONE 4 MG/ML VIAL IVP PRN (18:50)
[2018-05-17] MEDS ORDERED: HYDROCODONE/APAP 5/325 TAB PO PRN (18:50)
[2018-05-17] MEDS ORDERED: METOCLOPRAMIDE 10 MG/2 ML VIAL IVP PRN (18:50)
[2018-05-17] MEDS ORDERED: LR 500 ML IV PRN (18:50)
[2018-05-17] MEDS ORDERED: MEPERIDINE 25 MG/0.5 ML AMP IVP PRN (18:50)
[2018-05-17] MEDS ORDERED: PROMETHAZINE HCL 25 MG/ML INJ IVP PRN (18:50)
[2018-05-17] MEDS ORDERED: NALOXONE HCL 0.4 MG/ML INJ IVP PRN (18:50)
[2018-05-17] MEDS ORDERED: oxyCODONE IR 5 MG TAB PO PRN (18:50)
[2018-05-17] MEDS ORDERED: ACETAMINOPHEN 500 MG TAB PO PRN (18:50)
--- NOTE | 2018-05-17 18:53 | POSTANESTH ---
Post Anesthetic Evaluation Cardiovascular Status: Normal, Stable, Similar to Pre-Op Cond Respiratory Status: Normal, Stable, Tx Decrease in SpO2 (mild post op hypoxia) Level of Consciousness/Mental Status: Can Participate in Eval, Mildly Sleepy, Arousable Pain Control: Adequate, Prn Tx Ordered Nausea/Vomiting Control: Adequate, Prn Tx Ordered Complications Possibly Related to Anesthesia: None Noted
[2018-05-17] MEDS: HYDROCODONE/APAP 5/325 TAB PO PRN ×2 (19:53→23:45)
[2018-05-17] MEDS: PRESERVISION AREDS2 FORMULA EYE VIT 1 EACH PO SCH (20:59)
[2018-05-17] MEDS: FLUTICASONE/SALMETER 250/50MCG DISKUS IH SCH (21:05)
[2018-05-17] MEDS: traZODone 50 MG TAB PO SCH (21:47)
[2018-05-18] MEDS ORDERED: ALBUMIN 5% 500 ML IV ONE (00:30)
[2018-05-18] MEDS ORDERED: NS 1,000 ML IV SCH (00:30)
[2018-05-18] MEDS: LEVOTHYROXINE 88 MCG TAB PO SCH (05:27)
[2018-05-18] MEDS: PANTOPRAZOLE SODIUM 40 MG TAB PO SCH ×2 (05:32→06:12)
[2018-05-18] MEDS: ACETAMINOPHEN 325 MG TAB PO PRN ×2 (05:38→14:28)
[2018-05-18] MEDS: FLUTICASONE/SALMETER 250/50MCG DISKUS IH SCH ×2 (08:16→20:29)
[2018-05-18] MEDS: OMEGA-3 FATTY ACIDS 1,000 MG CAP PO SCH (08:31)
[2018-05-18] MEDS: ASCORBIC ACID 500 MG TAB PO SCH (08:31)
[2018-05-18] MEDS: PRESERVISION AREDS2 FORMULA EYE VIT 1 EACH PO SCH ×2 (08:31→20:29)
[2018-05-18] MEDS: MULTIVITAMINS 1 EACH TAB PO SCH (08:31)
[2018-05-18] MEDS: ROSUVASTATIN CALCIUM 20 MG TAB PO SCH (08:32)
[2018-05-18] MEDS ORDERED: NEBIVOLOL HCL 5 MG TAB PO SCH (09:00)
[2018-05-18] MEDS ORDERED: Herbals/Supplements -Info Only PO SCH (09:00)
[2018-05-18] MEDS ORDERED: CETIRIZINE 10 MG TAB PO PRN (09:00)
--- NOTE | 2018-05-18 09:23 | HOSPPROG ---
Hospitalist Progress Note Assessment/Plan: #Orthostatic hypotension: monitor on telemetry -check cortisol, TSH. Cardiac eval earlier this year reassuring -discontinue Bystolic #Syncope: recent stress August 2017 negative for ischemia. Echo 07/08 with normal EF, mod AI, but no . #L carotid stenosis: POD #1 CEA. -ok by Dr. Garvin for ASA 81mg today #PVCs: cards to place subcutaneous monitor outpatient #HLD: statin #Hypothyroidism: LT4 #Hyponatremia: mildly down today. Check urine lytes, osm. #HTN: normotensive now. Add back BP meds as needed #Diet: regular after surgery #DVT ppx: SCDs #Disp: inpatient admission for L CEA. Discussed with Dr. Mcnamara Subjective: no dizziness this morning Objective: Vital Signs Temp Pulse Resp BP Pulse Ox 36.5 C 72 18 120/44 L 94 05/18/18 07:00 05/18/18 08:17 05/18/18 07:00 05/18/18 08:17 05/18/18 07:00 Laboratory Results 05/17/18 05:30 05/18/18 05:47 05/17/18 05/18/18 05/19/18 05:59 05:59 05:59 Intake Total 4220 Output Total 525 Balance 3695 - Time Spent With Patient Time Spent with Patient: greater than 35 minutes Time Spent with Patient: Greater than 35 minutes spent on this patients care, greater than 50% of time spent counseling, educating, and coordinating care regarding the above mentioned plan. - Physical Exam Constitutional: no apparent distress Eyes: PERRL Ears, Nose, Mouth, Throat: other (left neck surgcial incision dressed, CDI) Cardiovascular: regular rate and rhythym, No edema Respiratory: no respiratory distress Gastrointestinal: normoactive bowel sounds Genitourinary: no bladder fullness Skin: warm Neurologic: AAOx3, CN II-XII Intact ICD10 Worksheet Patient Problems: Problems Problem Status Onset Syncope Acute PVC (premature ventricular contraction) Acute
--- NOTE | 2018-05-18 09:50 | PDCONSULT ---
[employer]ic Systems Engineer Note: ASSESSMENT 82-year-old male with multiple medical problems including severe carotid artery stenosis status post open CEA by Dr. Garvin 05/17/2018 clinically improving but still with significant orthostatic hypotension # severe carotid artery stenosis status post L CEA by Dr Garvin 05/07/18 and prior R CEA # orthostatic hypotension. Differential diagnosis includes intravascular volume depletion, postoperative vasoplegia, dysautonomia related to carotid body manipulation during CEA, relative adrenal insufficiency given hyponatremia hyperkalemia, as well as residual drug effect from oral outpatient antihypertensives. Last TTE June 2017 with moderate regurg and normal LV dimensions and function. Some mitral aortic valve calcifications # CAD s/p remote CABG # asthma, mild intermittent # HTN # OA # syncope # GERD # hypothyroidism # advanced age # asthma PLAN # give additional fluid bolus via albumin 5% 250 cc # check TSH and nedra stem # follow up serum, urine osms, urine lytes # may consider a trial of fludrocortisone after above tests are performed # post op care per Dr Garvin # high dose statin # aspirin # restart antihypertensives # okay to continue asthma inhalers. Given advanced age and lack of frequent exacerbations may be able to deescalate therapy. Will defer this to outpatient clinic # PPI for GERD # early ambulation # Feeding - cardiac diet # Analgesia APAP, oxy # Sedation none # Thromboprophylaxis - SQ hep # Head of bed elevated # Ulcer prophylaxis - PPI for GERD # Glucose SSI # Skin no skin breakdown # Delirium - delirium precautions IMAGING Personally reviewed interpreted radiographic images well as formal radiology reads 06/30/2017 chest x-ray sternotomy wires in place, mildly increased lung markings. No focal infiltrate or pneumothorax DATA 08/28/2017 Nuc stress no reversible ischemia. LVEF mildly decreased to 49%. 06/1017 TTE with normal LVF, moderate aortic regurgitation mild calcifications on aortic and mitral valves 06/2016 a 70 athletic monitor with normal sinus rhythm. Few asymptomatic PVCs Labs- reviewed CONSULT I was asked by Dr. Garvin of General surgery to evaluate this patient for postoperative ICU care, asthma and orthostatic hypotension Chief complaint Syncope TOM العلي is a very pleasant 82-year-old male with multiple medical problems including severe coronary disease status post CABG in the s as well as severe bilateral carotid artery stenosis. He initially underwent a right CEA years ago. She was initially admitted to the hospital for syncope presumed due to his left-sided severe stenosis and underwent carotid endarterectomy by Dr. Garvin 05/17/2018. Prior to admission he had been having some mild orthostatics symptoms. Prior workup for this is been negative today. He underwent a nuclear stress recently that was negative for reversible ischemia. His LVF was mildly depressed (45%) at that time. Postoperatively he has been doing well but has suffered from significant orthostatic hypotension. He has responded to small boluses of both colloid and crystalloid. He denies shortness of breath, fevers chills nausea vomiting, weight loss, however cold intolerance, increasing swelling. Allergies No known drug allergies Medications (home) Aspirin, nitroglycerin, Crestor 20 daily, trazodone 20-50 mg p.o. At bedtime p.r.n., albuterol as needed, vitamin-C, Advair of problem omeprazole 20, losartan, Bystolic, amlodipine, gabapentin Past medical history CAD status post CABG , bilateral carotid artery stenosis status post remote right CEA, status post left CEA 05/09/2018, hypertension, hyperlipidemia , OA, syncope, low back pain, spinal stenosis, hypothyroidism, GERD Social history [facility] in [facility]. . Nonsmoker nondrinker Review of systems A comprehensive 10 point review of systems was obtained is negative except as per HPI Physical exam Afebrile, pulse 80, blood pressure 120/70, positive orthostatics respiratory rate 18 96% GEN: NAD, up in chair, interactive NEURO: A&Ox3, CN 2-12 GI HEENT: PERRL, EOMI, MMM, OP clear NECK: Left incision site clean dry and intact CHEST normal shape, no pes excavatum CVS: Right-sided systolic murmur, no heaves PULM: CTA B, no wheezes/rales/rhonchi ABD: soft, NT, ND, NABS EXT: no swelling, no cyanosis, full ROM SKIN: warm, dry, intact, no rash PSYCH CAM negative, appropriate affect LABS reviewed Na 132, K 4.5, Serum Osm 280
[2018-05-18] MEDS: ASPIRIN 81 MG CHEWABLE TAB PO SCH (10:27)
[2018-05-18] MEDS: HYDROCODONE/APAP 5/325 TAB PO PRN ×2 (10:27→20:34)
[2018-05-18] MEDS ORDERED: ALBUMIN 5% 250 ML IV ONE (10:57)
--- NOTE | 2018-05-18 11:30 | PDMN ---
Medical Necessity Medical necessity: [facility] S300 CEA: 82 yo presents w/ Syncope, initially OBS for workup but concern r/t known 80% carotid stenosis. Pt had planned surg (CEA) in May but moved up to this hospital stay. Pt s/p CEA, admit to IP status as pt will require>2MN for post op care. Meets [facility] CEA IP criteria for known carotid stenosis w/ preop acute neuro change, advanced age and multiple comorbidities described below. Hx CAD, CABG, carotid artery stenosis 80%, asthma, HTN and HLD. Change to IP status 05/17/18@1637 per MD order.
--- NOTE | 2018-05-18 12:21 | SOAPPROG ---
SOAP Progress Note Assessment/Plan: Assessment: s/p L CEA Orthostatic although no longer dizzy Appreciate Dr. Mcnamara and Dr. Hollis Call if condition worsens or extreme headaches S: Feeling about 80%. No longer dizzy. O: Examined while standing - was steady Incision cdi Plan: 05/18/18 12:21 05/18/18 12:21 Objective: Vital Signs Temp Pulse Resp BP Pulse Ox 36.5 C 70 12 90/53 L 94 05/18/18 07:00 05/18/18 11:55 05/18/18 11:55 05/18/18 11:55 05/18/18 11:55 Laboratory Results 05/18/18 05:47 05/17/18 05/18/18 05/19/18 05:59 05:59 05:59 Intake Total 3470 610 Output Total 525 250 Balance 2945 360 ICD10 Worksheet Patient Problems: Problems Problem Status Onset Syncope Acute PVC (premature ventricular contraction) Acute
--- NOTE | 2018-05-18 13:37 | SOAPPROG ---
SOAP Progress Note Assessment/Plan: Assessment: 1. Clinical presentation with syncope. The exact etiology is not entirely clear. He is significantly orthostatic and has had episodes of presyncope in the past requiring adjustments of his antihypertensive medications. He has had outpatient telemetry monitoring with no arrhythmias identified despite his baseline right bundle branch block. His inpatient telemetry has likewise been normal. Interestingly, his episode of syncope occurred while he was at home in a seated position. This makes orthostasis a little bit less likely. 2. Peripheral vascular disease. He is 1 day status post left carotid endarterectomy. He has had a previous right carotid endarterectomy. His carotid disease was fortuitously discovered during a routine office visit. I think that this is not related to his clinical presentation. 3. Coronary artery disease. He has had previous 4 vessel bypass surgery in 1991. His ejection fraction has historically been normal. He has had previous angioplasty of an unknown vessel on 2 occasions. Recent stress myocardial perfusion imaging which was performed in August of 2017 was unremarkable. 4. Labile hypertension. This has been problematic as an outpatient. Currently , on only a very low-dose of Bystolic, he has continued to manifest orthostasis. As an outpatient he has required therapy with not only Bystolic but also losartan. 5. Hyperlipidemia. Historically he has been treated with aggressive doses of statin therapy. 6. Abnormal ECG. He has a baseline right bundle branch block. Plan: 1. He will be monitored on telemetry during the remainder of his hospitalization here. 2. Prior to or shortly after discharge I think it would be prudent to implant a subcutaneous secured entrance monitor. 3. Given the profound nature of his orthostasis I think that we should discontinue his Bystolic for the time being. It may be that we avoid beta- bakari therapy and simply rely on alternate antihypertensive medications. 4. He will continue on medications for secondary prevention. 5. We will follow along with you. 05/18/18 13:38 Subjective: He states he is feeling well today. Despite the fact that he has been significantly orthostatic he has not been dizzy. There are no apparent complications as result of his recent carotid endarterectomy. No arrhythmias have been noted on telemetry. Objective: Vital Signs Temp Pulse Resp BP Pulse Ox 36.5 C 77 18 112/45 L 95 05/18/18 07:00 05/18/18 13:00 05/18/18 13:00 05/18/18 13:00 05/18/18 13:00 Laboratory Results 05/18/18 05:47 05/17/18 05/18/18 05/19/18 05:59 05:59 05:59 Intake Total 3470 850 Output Total 525 350 Balance 2945 500 Physical Exam - Physical Exam General Appearance: WD/WN, alert, no apparent distress EENT: PERRL/EOMI, normal ENT inspection, pharynx normal, TMs normal Neck: other (L CEA incision) Respiratory: chest non-tender, lungs clear, normal breath sounds Cardiac/Chest: normal peripheral pulses, regular rate, rhythm, other ( sternotomy intact) Peripheral Pulses: 2+: carotid (R), carotid (L), femoral (R), femoral (L), dorsalis-pedis (R), dorsalis-pedis (L) Abdomen: normal bowel sounds, non-tender, soft Male Genitalia: deferred Rectal: deferred Back: Normal inspection Skin: normal color, warm/dry Lymphatic: no adenopathy Extremities: normal range of motion, non-tender, normal inspection, normal capillary refill Neuro/Psych: no motor/sensory deficits, alert, normal mood/affect, oriented x 3 ICD10 Worksheet Patient Problems: Problems Problem Status Onset Syncope Acute PVC (premature ventricular contraction) Acute
[2018-05-18] MEDS ORDERED: hydrALAZINE 20 MG/ML VIAL IVP PRN (13:44)
[2018-05-18] MEDS ORDERED: COSYNTROPIN 0.25 MG/2 ML SYRINGE IVP ONE (13:57)
[2018-05-18] MEDS ORDERED: SENNOSIDES 17.6 MG/10 ML UDL PO SCH (14:45)
[2018-05-18] MEDS: predniSONE 5 MG TAB PO SCH (18:44)
[2018-05-18] MEDS: FLUDROCORTISONE ACETATE 0.1 MG TAB PO SCH (18:44)
[2018-05-18] MEDS: SENNOSIDES 1 TAB PO SCH (20:32)
[2018-05-18] MEDS: traZODone 50 MG TAB PO SCH (20:32)
[2018-05-18] MEDS: CALCIUM CARBONATE 500 MG CHEWABLE TAB PO SCH (20:32)
[2018-05-18] MEDS ORDERED: MELATONIN 3 MG TAB PO SCH (21:00)
[2018-05-19] MEDS: LEVOTHYROXINE 88 MCG TAB PO SCH (05:53)
[2018-05-19] MEDS: ACETAMINOPHEN 325 MG TAB PO PRN (05:53)
[2018-05-19] MEDS: PANTOPRAZOLE SODIUM 40 MG TAB PO SCH (05:53)
[2018-05-19] MEDS: FLUDROCORTISONE ACETATE 0.1 MG TAB PO SCH (07:56)
[2018-05-19] MEDS: predniSONE 5 MG TAB PO SCH (07:57)
[2018-05-19] MEDS: PRESERVISION AREDS2 FORMULA EYE VIT 1 EACH PO SCH (07:57)
[2018-05-19] MEDS: ASPIRIN 81 MG CHEWABLE TAB PO SCH (07:57)
[2018-05-19] MEDS: ROSUVASTATIN CALCIUM 20 MG TAB PO SCH (07:57)
[2018-05-19] MEDS: ASCORBIC ACID 500 MG TAB PO SCH (07:58)
[2018-05-19] MEDS: MULTIVITAMINS 1 EACH TAB PO SCH (07:58)
[2018-05-19] MEDS: SENNOSIDES 1 TAB PO SCH (07:58)
[2018-05-19] MEDS: OMEGA-3 FATTY ACIDS 1,000 MG CAP PO SCH (07:58)
--- NOTE | 2018-05-19 08:16 | SOAPPROG ---
SOAP Progress Note Assessment/Plan: Assessment: s/p L CEA Doing better today Started steroids From a carotid perspective can dc home when medically ready May shower F/U with Dr. Garvin on Call if condition worsens or extreme headaches S: Wanting to go home today. Per nursing, did need help overnight O: Sitting in bed, eating breakfast Incision cdi - no hematoma Plan: 05/18/18 12:21 05/18/18 12:21 05/19/18 08:15 Objective: Vital Signs Temp Pulse Resp BP Pulse Ox 37.1 C 68 16 124/48 H 94 05/19/18 07:46 05/19/18 07:46 05/19/18 07:46 05/19/18 07:46 05/19/18 07:46 Laboratory Results 05/19/18 03:00 05/18/18 05/19/18 05/20/18 05:59 05:59 05:59 Intake Total 3470 2130 240 Output Total 525 900 Balance 2945 1230 240 ICD10 Worksheet Patient Problems: Problems Problem Status Onset Syncope Acute PVC (premature ventricular contraction) Acute
--- NOTE | 2018-05-19 09:07 | SOAPPROG ---
SOAP Progress Note Assessment/Plan: Assessment: 1. Clinical presentation with syncope. The exact etiology is not entirely clear. He is significantly orthostatic and has had episodes of presyncope in the past requiring adjustments of his antihypertensive medications. He has had outpatient telemetry monitoring with no arrhythmias identified despite his baseline right bundle branch block. His inpatient telemetry has likewise been normal. Interestingly, his episode of syncope occurred while he was at home in a seated position. This makes orthostasis a little bit less likely. 2. Peripheral vascular disease. He is 1 day status post left carotid endarterectomy. He has had a previous right carotid endarterectomy. His carotid disease was fortuitously discovered during a routine office visit. I think that this is not related to his clinical presentation. 3. Coronary artery disease. He has had previous 4 vessel bypass surgery in 1991. His ejection fraction has historically been normal. He has had previous angioplasty of an unknown vessel on 2 occasions. Recent stress myocardial perfusion imaging which was performed in August of 2017 was unremarkable. 4. Labile hypertension. This has been problematic as an outpatient. Currently , on only a very low-dose of Bystolic, he has continued to manifest orthostasis. As an outpatient he has required therapy with not only Bystolic but also losartan. 5. Hyperlipidemia. Historically he has been treated with aggressive doses of statin therapy. 6. Abnormal ECG. He has a baseline right bundle branch block. 7. Likely primary adrenal insufficiency. 05/19/2018: He appears to be stable today. He has not had any arrhythmias and denies symptoms that would suggest recurrent ischemia. He appears to be recovering nicely following his left carotid endarterectomy. Additionally, after a diagnosis of what looks like primary adrenal insufficiency and institution of therapy his orthostasis appears to be improving as well. Plan: 1. We will plan to recheck his orthostatic vital signs. 2. I would like to see how he does walking around the [place]. As long as he is feeling well and is not dizzy I think that he can be discharged home. 3. I will plan to see him back in the office late next week to reassess his blood pressures. We may need to reinstitute antihypertensive therapies. Additionally, he is very good about monitoring home blood pressures. If we see a significant increase in blood pressures we can always reinstitute his antihypertensives prior to his follow-up visit with me. 4. I still think it would be prudent to proceed with outpatient telemetry monitoring given the fact that his episode of syncope occurred in a seated position. I can discuss this with him at his follow-up visit. 05/19/18 09:08 Subjective: He is doing very well today. I appreciate the assistance from critical care medicine. Yesterday, he had a cosyntropin stim test. This was abnormal indicating adrenal insufficiency. He has been started on prednisone and low- dose fludrocortisone. This has resulted in him feeling better and an improvement in previously noted orthostasis. Likewise he has had an improvement in hyponatremia. He notes no chest discomfort. He denies dyspnea. On telemetry he has not had any arrhythmias. Objective: Vital Signs Temp Pulse Resp BP Pulse Ox 37.1 C 68 16 124/48 H 94 05/19/18 07:46 05/19/18 07:46 05/19/18 07:46 05/19/18 07:46 05/19/18 07:46 Laboratory Results 05/19/18 03:00 05/18/18 05/19/18 05/20/18 05:59 05:59 05:59 Intake Total 3470 2130 240 Output Total 525 900 Balance 2945 1230 240 Physical Exam - Physical Exam General Appearance: WD/WN, alert, no apparent distress EENT: PERRL/EOMI, normal ENT inspection, pharynx normal, TMs normal Neck: full range of motion, supple, other (Left carotid endarterectomy incision) Respiratory: chest non-tender, lungs clear, normal breath sounds Cardiac/Chest: normal peripheral pulses, regular rate, rhythm Abdomen: normal bowel sounds, non-tender, soft Male Genitalia: deferred Rectal: deferred Back: Normal inspection Skin: normal color, warm/dry Lymphatic: no adenopathy Extremities: normal range of motion, non-tender, normal inspection, normal capillary refill Neuro/Psych: no motor/sensory deficits, alert, normal mood/affect, oriented x 3 ICD10 Worksheet Patient Problems: Problems Problem Status Onset Syncope Acute PVC (premature ventricular contraction) Acute
--- NOTE | 2018-05-19 09:15 | HOSPPROG ---
Hospitalist Progress Note Assessment/Plan: #Orthostatic hypotension: monitor on telemetry -positive stim test. Start hydrocortisone/pred #Syncope: recent stress August 2017 negative for ischemia. Echo 07/08 with normal EF, mod AI, but no . #L carotid stenosis: POD #1 CEA. -ok by Dr. Garvin for ASA 81mg today #PVCs: cards to place subcutaneous monitor outpatient #HLD: statin #Hypothyroidism: LT4 #Hyponatremia: mildly down today. Check urine lytes, osm. #HTN: normotensive now. Add back BP meds as needed #Diet: regular after surgery #DVT ppx: SCDs #Disp: DC today. See DC summary for exam, and A&P Subjective: constipated Objective: Vital Signs Temp Pulse Resp BP Pulse Ox 37.1 C 68 16 124/48 H 94 05/19/18 07:46 05/19/18 07:46 05/19/18 07:46 05/19/18 07:46 05/19/18 07:46 Laboratory Results 05/19/18 03:00 05/18/18 05/19/18 05/20/18 05:59 05:59 05:59 Intake Total 3470 2130 240 Output Total 525 900 Balance 2945 1230 240 ICD10 Worksheet Patient Problems: Problems Problem Status Onset PVC (premature ventricular contraction) Acute Syncope Acute
[2018-05-19] MEDS: FLUTICASONE/SALMETER 250/50MCG DISKUS IH SCH (09:50)
--- NOTE | 2018-05-19 09:59 | PDINTPN ---
Under Presser Progress Note Assessment/Plan: ASSESSMENT 82-year-old male with multiple medical problems including severe carotid artery stenosis status post open CEA by Dr. Garvin 05/17/2018 and newly diagnosed primary insufficiency based on a cortisol stimulation test with cosyntropin 250 mcg on 05/17/2018. In retrospect patient had been having mild symptoms of primary adrenal insufficiency for 2-3 months prior to surgery thus warrants treatment # primary adrenal insufficiency. Based on nedra stem test with with high dose cosyntropin 250 mcg on 05/17/18. Clinically responded to low dose prednisone 5 mg daily plus fludrocortisone. If symptoms not completely resolved suggest increasing to 7.5 mg daily. After 6-8 weeks May trial slight decrease in steroids to 2.5 mg and recheck orthostatics and consider weaning off. If recurrence surgery critical illness will need stress dose steroids to prevent adrenal crisis. More testing will not roll changer at this point # severe carotid artery stenosis status post L CEA by Dr Garvin 05/07/18 and prior R CEA # CAD s/p remote CABG # asthma, mild intermittent # HTN # OA # syncope # GERD # hypothyroidism # advanced age # asthma PLAN # continue prednisone 5 mg daily # increase fludrocortisone to 0.1 mg daily # need OP BMP in 2 weeks to check sodium and potassium concentrations and titrate fludrocortisone as needed # assuming no recurrent orthostatics okay to discharge from a hemodynamic standpoint # post op care per Dr Garvin # high dose statin # aspirin # hold antihypertensives # consider outpatient follow-up with category consultant for repeat PFTs. Given advanced age and lack of frequent exacerbations may be able to deescalate therapy. I a Dr. Mcnamara in happy to see him in my clinic # PPI for GERD # early ambulation # Feeding - cardiac diet # Analgesia APAP, oxy # Sedation none # Thromboprophylaxis - SQ hep # Head of bed elevated # Ulcer prophylaxis - PPI for GERD # Glucose SSI # Skin no skin breakdown # Delirium - delirium precautions 05/19/18 10:00 Subjective: Nedra stem positive for primary adrenal insufficiency yesterday. Started on prednisone with resolution of orthostatics. Patient feels better today. No lightheadedness, no fevers chills nausea vomiting shortness of breath syncope leg swelling Objective: Vital Signs Temp Pulse Resp BP Pulse Ox 37.1 C 68 16 124/48 H 94 05/19/18 07:46 05/19/18 07:46 05/19/18 07:46 05/19/18 07:46 05/19/18 07:46 Laboratory Results 05/19/18 03:00 05/18/18 05/19/18 05/20/18 05:59 05:59 05:59 Intake Total 3470 2130 240 Output Total 525 900 Balance 2945 1230 240 Physical Exam - Physical Exam General Appearance: alert, no apparent distress EENT: PERRL/EOMI, normal ENT inspection Neck: non-tender, full range of motion, supple, other (Left neck incision site clean dry and intact) Respiratory: lungs clear, normal breath sounds, No respiratory distress Cardiac/Chest: normal peripheral pulses, regular rate, rhythm, other (Negative orthostatic vitals) Abdomen: normal bowel sounds, non-tender, soft Skin: normal color, warm/dry, No cyanosis Neuro/Psych: no motor/sensory deficits, alert, normal mood/affect ICD10 Worksheet Patient Problems: Problems Problem Status Onset Syncope Acute PVC (premature ventricular contraction) Acute
[2018-05-19] MEDS: CALCIUM CARBONATE 500 MG CHEWABLE TAB PO SCH (10:07)
[2018-05-19] MEDS ORDERED: FLUDROCORTISONE ACETATE 0.1 MG TAB PO ONE (10:15)
--- NOTE | 2018-05-19 11:57 | ASMTCMCOM ---
CM Note CM Note Notes: 82yo male admitted for Syncope-L carotid artery stenosis. She has a Hx of CAD-CABG ', R CEA, Asthma, HTN, HLD, Hyponatremia, Spinal jkmlnxzv-hdvrrzy-mci back pain,Hypothyroid, GERD, OA. Patient is scheduled to have L CEA in May. Lives with his , son a MD at [facility]. May not have discharge needs. Date Signed: 05/19/2018 11:57 AM Electronically Signed By:Ghislaine Zuniga LCSW
--- NOTE | 2018-05-19 11:59 | ASMTLACE ---
LACE Acuity / Level of Answers: Yes Care: Did the patient have an inpatient admission? Comorbidities - select Answers: Cerebrovascular disease all that apply (CVA, TIA, aneurysms, vasc ular dementia) Other Notes: CAD, HTN, Hyponatremia, Sp inal stenosis # of Emergency department Answers: 1-2 visits in the last 6 months Score: 6 Date Signed: 05/19/2018 11:59 AM Electronically Signed By:Ghislaine Zuniga LCSW
[2018-05-19] MEDS ORDERED: BISACODYL 10 MG SUPP PR ONE (12:18)
[2018-05-19] MEDS ORDERED: LACTULOSE 20 GM/30 ML UDCUP PO ONE (12:19)
--- NOTE | 2018-05-19 14:03 | ASDISCHSUM ---
Discharge Information Plan Status:Home with No Needs Medically Cleared to Leave:05/18/2018 Discharge Date:05/18/2018 CM D/C Disposition:Home, Routine, Self-Care ADT D/C Disposition:Home, Routine, Self-Care Projected Discharge Date:05/19/2018 03:00 PM Transportation at D/C:Family Discharge Delay Reason: Follow-Up Date:05/19/2018 03:00 PM Discharge Slot:2 - 12:01 pm - 18:00 pm Final Diagnosis:Syncope-L carotid artery stenosis Placement Information Patient Contact Information Contact Name:NILO Relationship: Address:[address] City:[place] Alternate Phone: [facility]/Zip Code:[place] [address] Email: Financial Information Financial Class:Medicare Primary Plan Desc:MEDICARE OUTPATIENT Primary Plan Number:[id number] Secondary Plan Desc:[facility] Secondary Plan Number:[id number] Assessment Information [facility] CM Progress Note CM Note CM Note Notes: 82yo male admitted for Syncope-L carotid artery stenosis. She has a Hx of CAD-CABG '96, R CEA, Asthma, HTN, HLD, Hyponatremia, Spinal myqnzfhi-qafmpit-acp back pain,Hypothyroid, GERD, OA. Patient is scheduled to have L CEA in May. Lives with his , son a MD at [facility]. May not have discharge needs. Date Signed: 05/19/2018 11:57 AM Electronically Signed By:Ghislaine Zuniga LCSW LACE LACGladis Acuity / Level of Answers: Yes Care: Did the patient have an inpatient admission? Comorbidities - select Answers: Cerebrovascular disease all that apply (CVA, TIA, aneurysms, vasc ular dementia) Other Notes: CAD, HTN, Hyponatremia, Sp inal stenosis # of Emergency department Answers: 1-2 visits in the last 6 months Score: 6 Date Signed: 05/19/2018 11:59 AM Electronically Signed By:Ghislaine Zuniga LCSW Case Management Discharge Plan Note Case Management Discharge Discharge Order Complete? Answers: Yes Patient to Obtain Answers: via Family Medications Transportation Arranged Answers: Family/Friends Transport will Pick (Date 05/19/2018 03:00 PM & Time) Family Notified Answers: Yes Notes: Family to transport Discharge Comments Notes: Patient has been discharged home. No discharge needs. Letter for airlines rewritten. Date Signed: 05/19/2018 02:03 PM Electronically Signed By:Ghislaine Zuniga LCSW Intervention Information
[2018-05-19 14:04] VITALS: BP 126/40
--- NOTE | 2018-05-19 14:24 | GDS ---
DISCHARGE DIAGNOSES: 1. Syncope. 2. Coronary artery disease. 3. Adrenal insufficiency, new diagnosis 4. Left carotid artery stenosis, status post carotid endarterectomy. 5. Hypertension. 6. Premature ventricular contractions. 7. Hyperlipidemia. 8. Hypothyroidism. 9. Hypovolemic hyponatremia. 10. Orthostatic hypotension HISTORY OF PRESENT ILLNESS: A pleasant 82-year-old male with history of right carotid stenosis, status post CEA, hypertension, hypothyroidism, CAD. presents with a syncopal episode. He was sitting on a sofa doing meditation after taking his normal antihypertensive and had a sudden onset of lightheadedness and subsequent loss of consciousness. Denied prodromal chest pain, palpitations , diaphoresis, or nausea. He has a history of right carotid stenosis, status post right CEA and currently with 80% stenosis of the left. He was scheduled for CEA in May with Dr. Garvin. HOSPITAL COURSE BY PROBLEM: 1. Syncope: Suspect a component of dehydration, as well as adrenal insufficiency. Patient has had an extensive cardiac evaluation this year, including echocardiogram June with LVEF of 66% and normal nuclear stress test in August. He underwent a 7 day monitor worker in June with 8% PVC burden. No evidence of atrial fibrillation or pauses. He was hydrated here, but still orthostatic. He had a positive Mars stim test, was started on prednisone and Florinef. He should establish care with an software quality analyst. 2. Left carotid stenosis: Status post CEA by Dr. Garvin. Resume baby aspirin, statin. Follow up with Dr. Garvin this week. 3. History of CAD: Status post CABG in 1991. 4. Hypertension: He is to hold all antihypertensives given orthostatic hypotension here. He will follow up with Dr. Hollis this next week. 5. Hypothyroidism: Levothyroxine. 6. Hyponatremia: Resolved. 7. COPD: No evidence of exacerbation. DISPOSITION: Patient is stable for discharge home with his . NEW MEDICATIONS: 1. Prednisone 5 mg. 2. Fludrocortisone 0.1 mg daily. FOLLOWUP: 1. Dr. Garvin. 2. Dr. Hollis. 3. PCP and obtain referral to an software quality analyst. PHYSICAL EXAMINATION: VITAL SIGNS: Today, temperature 36.3, blood pressure 122 /38, heart rate in 60s, respiration 14, 95% on room air. GENERAL: He is well appearing in no acute distress. He is walking in the unit. HEENT: PERRLA. Moist mucous membranes. NECK: Surgical incision, vinay healing well. CV: Regular rate and rhythm. LUNGS: Clear. ABDOMEN: Soft, nontender. : No Alfred. MUSCULOSKELETAL: 5/5 upper ad lower extremity strength. PSYCH: : Alert and oriented x3. Time spent on discharge greater than 30 minutes at bedside counseling patient on followup plan and discussing case with Dr. Hollis. /[id number]/MODL MTDD
--- NOTE | 2018-05-19 22:11 | GOP ---
DATE OF OPERATION: 05/17/2018 SURGEON: Sanchez Garvin MD HEAT SEALING MACHINE OPERATOR: Osvaldo Coles, DELTA. ANESTHESIOLOGIST: Omer Trujillo MD. PREOPERATIVE DIAGNOSIS: Critical left carotid stenosis and possible transient ischemic attack. POSTOPERATIVE DIAGNOSIS: Critical left carotid stenosis and possible transient ischemic attack. PROCEDURE PERFORMED: A left carotid endarterectomy with electroencephalogram monitoring. FINDINGS: The patient was found to have a tight calcified plaque at the origin of the internal carot id artery. He had no significant EEG changes. He awoke slowly but moving all extremities. He had a dequate backflow from his internal carotid artery. DESCRIPTION OF PROCEDURE: The patient was taken to the operating room where he received a satisfacto ry general endotracheal anesthesia by Dr. Trujillo. He was placed in the supine position, prepped and d raped in the usual sterile fashion. He had been systemically heparinized prior to induction of anest hesia. Incision was made along the anterior border of the sternocleidomastoid muscle and carried karissa n through the platysma and subcutaneous tissue and superficial fascia. His neck was rather stiff, ma saige the exposure somewhat limited. The common facial vein was multiply ligated and divided, exposin g the carotid arterial tree, which was dissected free. Vessel loops were placed around the common ca rotid, internal carotid, and external carotid arteries. Additional heparin was given at that point, and after adequate circulation time, the vessels were occluded. Arteriotomy was made in the common c arotid artery extending up through the plaque and then to the internal carotid artery. Good backflow was achieved. There were no EEG changes. An expeditious endarterectomy was then done removing the calcified plaque and achieving a good feathe red endpoint. All debris was removed from the arterial opening, and the wound was irrigated. All ve ssels were flushed. The arteriotomy was then closed with a Dacron patch and a running Hemashield 7 s uture. Flow was first established through the external carotid and then through the internal carotid . Suture line was reinforced in [address] It was otherwise hemostatic. Heparin was reversed with pr otamine. The wound was sprayed with some topical thrombin and closed in layers using 3-0 Vicryl for the superficial fascia and 3-0 Vicryl for the platysma and subcutaneous tissue and a running 3-0 Prol monisha mattress suture for the skin because the skin edges were quite persistently oozing. He had santo ated the procedure well. Taken to recovery room in good condition. There were no complications. /[id number]/MODL
[2018-05-20] MEDS ORDERED: FLUDROCORTISONE ACETATE 0.1 MG TAB PO SCH (09:00)
--- NOTE | 2018-05-22 12:17 | GCON ---
DATE OF CONSULTATION: 05/16/2018 REASON FOR CONSULTATION: The patient is an 82-year-old male who was referred to me who presented to the ER with a syncopal episode and some orthostatic hypotension. He is known to have a significant l eft carotid stenosis approaching 80%. He has had a previous right carotid endarterectomy many years ago. He is actually scheduled for surgery for left carotid endarterectomy next week. He has had no focal neurological defects but simply a global syncopal episode. REVIEW OF SYSTEMS: No other major medical problems on a full 10-point review. ALLERGIES: None. MEDICATIONS: 1. Eyedrops. 2. Advair. 3. Loratadine. 4. Singulair. 5. Multivitamins. 6. Nitroglycerin p.r.n. 7. Crestor. 8. Trazodone. 9. Albuterol. 10. Aspirin. PAST MEDICAL HISTORY: Coronary artery disease; for which, he has had a bypass. He has had right car otid endarterectomy. He has asthma, hypertension, osteoarthritis, and history of syncope. He has [facility] back surgery for spinal stenosis, hypothyroidism, GERD symptoms and hyperlipidemia. PAST SURGICAL HISTORY: Bilateral cataract repairs, tonsillectomy, adenoidectomy, right carotid endar terectomy, left inguinal hernia repair and L5 laminectomy. FAMILY HISTORY: Noncontributory. SOCIAL HISTORY: He is . He does not smoke. He is quite active. PHYSICAL EXAMINATION: GENERAL: This is an alert 82-year-old male in no acute distress. HEAD AND NE CK: Exam reveals bilateral carotid bruits. PERRLA with EOMs intact, nonicteric. No oral lesions. NECK: Supple, but decreased range of motion. There are no masses. CHEST: Clear. CARDIAC: Exam w ith regular rhythm. ABDOMEN: Soft without masses or organomegaly. EXTREMITIES: Reveal full range of motion and full pulses. NEUROLOGIC: Exam is physiologic and symmetric with cranial nerves intact . PSYCH: Exam reveals him to be alert, oriented, and cooperative. IMPRESSION: 1. Syncope. 2. Left carotid stenosis. 3. History of coronary artery disease. 4. Hyponatremia. 5. Asthma. 6. Hypertension. 7. Hypothyroidism. 8. Gastroesophageal reflux disease (GERD). RECOMMENDATIONS: Medical clearance and then left carotid endarterectomy which can be done on this ad mission if he desires if there is no cardiac contraindication. I doubt that his syncopal episode is related directly to his carotid, but it makes his carotid lesion more dangerous and makes him more stoner sceptible for stroke, and I would recommend left carotid endarterectomy. Risks and options have been fully discussed and he wishes to proceed. He will first need medical evaluation for syncopal episod e. /[id number]/MODL
== END 2018-05-19 15:00 | disposition home or self-care (01) | DRG 38 ==
LOC: EDBD → EDUNIT# → F2W 05-17 13:15 → F2N 05-17 16:20 → OBSVTOIN 05-17 16:37 → F2N 05-17 19:35
PROVIDERS: ADMIT Family Medicine; ATTEND Family Medicine
DX: I65.22 Occlusion and stenosis of left carotid artery (principal); E27.1 Primary adrenocortical insufficiency; I95.1 Orthostatic hypotension; E87.1 Hypo-osmolality and hyponatremia; I25.10 Atherosclerotic heart disease of native coronary artery without angina pectoris; E78.00 Pure hypercholesterolemia, unspecified; E03.9 Hypothyroidism, unspecified; Z95.1 Presence of aortocoronary bypass graft
CPT/HCPCS: 82530-90; 83789-90; 84484-ER; J0690; J0834; J1100; J1170; J1644; J2001; J2270; J2370; J2405; J2704; J2720; J3010; J7512; P9041

== ENCOUNTER → 2018-05-22 | Outpatient (CLI) | payer OTHER | END | disposition home or self-care (01) | LOC: FIMAGING 12:29 | PROVIDERS: ATTEND Surgery | DX: J81.1 Chronic pulmonary edema (principal); J90 Pleural effusion, not elsewhere classified; J98.11 Atelectasis; I51.7 Cardiomegaly; R93.89 Abnormal findings on diagnostic imaging of other specified body structures; Z98.890 Other specified postprocedural states ==

== ENCOUNTER → 2018-05-28 | Outpatient (CLI) | payer OTHER | LOC: FIMAGING 08:15 | PROVIDERS: ATTEND Internal Medicine Cardiovascular Disease | DX: J90 Pleural effusion, not elsewhere classified (principal); I50.9 Heart failure, unspecified; Z95.5 Presence of coronary angioplasty implant and graft ==